=== PATIENT | female | born 1940 | race Caucasian/White ===

== ENCOUNTER → 2017-03-18 | Outpatient (CLI) | payer MEDICARE, BC ==
--- NOTE | 2017-03-24 14:16 | MM ---
Reason for exam: screening (asymptomatic). Last mammogram was performed 1 year and 5 months ago. History: Patient is postmenopausal and has history of other cancer at age 77. Took estrogen for 7 years 7 months. Took progesterone for 7 years 7 months. Physical Findings: A clinical breast exam by your physician is recommended on an annual basis and results should be correlated with mammographic findings. MG 3D Screening Mammo W/Cad Bilateral CC and MLO view(s) were taken. Prior study comparison: October 08, 2015, bilateral MG 3d screening mammo w/cad. June 27, 2014, bilateral MG screening mammo w CAD. There are scattered fibroglandular densities. No significant changes when compared with prior studies. ASSESSMENT: Benign, BI-RAD 2 RECOMMENDATION: Routine screening mammogram of both breasts in 1 year.
== END | disposition home or self-care (01) ==
LOC: RADMAMWWP 13:00
PROVIDERS: ATTEND Internal Medicine
DX: Z12.31 Encounter for screening mammogram for malignant neoplasm of breast (principal)
CPT/HCPCS: 77063; G0202

== ENCOUNTER → 2017-07-19 | Outpatient (CLI) | payer MEDICARE, BC ==
[2017-07-19 13:48] VITALS: BP 139/81; PULSE 90; TEMP 96.7; BMI 28.3
--- NOTE | 2017-07-19 14:50 | P.HPOB ---
History of Present Illness H&P Date: 07/19/17 Chief Complaint: The patient is here for her routine gynecologic exam. This is a 77-year-old G3 PIII with an LMP of 1997. Patient is here to establish with this office. She previously saw Dr. Toledo for her gynecologic exams. It is been about 5 years since her last pelvic exam. She is without gynecologic complaints and denies any postmenopausal bleeding. Her last mammogram on 03/18/2017 was benign. Her last bone density test was on 2014. Review of Systems Her weight has been stable. She denies respiratory, cardiac, or G.I. problems. She denies maltreatment are falling. : she denies any significant problems with urinary leakage. Past Medical History Past Medical History: GERD/Reflux, Hyperlipidemia Additional Past Medical History / Comment(s): Vertical and osteoporosis. She did use Actonel for 5 years until approximately 2012. 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 She had 3 vaginal deliveries. History of Any Multi-Drug Resistant Organisms: None Reported Past Surgical History: Appendectomy Additional Past Surgical History / Comment(s): Colonoscopy 2013. Laparoscopy and D&Cs in the past. Past Psychological History: No Psychological Hx Reported Smoking Status: Never smoker Past Alcohol Use History: Occasional (About one glass of wine every other day.) Past Drug Use History: None Reported Additional History: She has been since 1964 and is sexually active. - Past Family History Father Family Medical History: Cancer (Prostate) Mother Family Medical History: Hyperlipidemia Medications and Allergies Home Medications Medication Instructions Recorded Confirmed Type Aspirin [Children's Aspirin] mg PO DAILY 07/19/17 History Fluocinolone Acetonide Oil ml BOTH EARS PRN 07/19/17 History [Fluocinolone Acetonide Oil (Otic)] Omeprazole/Sodium Bicarbonate mg PO 07/19/17 History [Omeprazole-Bicarb 20-1,100 Cap] Simvastatin mg PO HS 07/19/17 History Allergies Allergy/AdvReac Type Severity Reaction Status Date / Time No Known Allergies Allergy Unverified 07/19/17 13:50 Exam - Vital Signs Vital signs: Vital Signs Temp Pulse BP 07/19/17 13:21 96.7 F L 90 139/81 Intake and Output 07/18/17 07/19/17 07/19/17 22:59 06:59 14:59 Other: Weight 70.307 kg Height 5'2", BMI 28.3. This is a well-developed well-nourished white female who is alert and oriented times 3 in no acute distress. HEENT: Within normal limits. NECK: Supple without mass or thyromegaly. CHEST AND LUNGS: Clear to auscultation. HEART: Regular rate and rhythm. BREASTS: Are without mass or discharge. AXILLARY EXAM: Negative for adenopathy. BACK: Negative for CVA tenderness. ABDOMEN: Soft, nontender, without palpable masses. PELVIC EXAM: Normal external genitalia with mild to moderate atrophy. Cervix and vagina appear normal with mild to moderate atrophy. There is no unusual discharge. There is no evidence of prolapse. The uterus is midposition, nongravid size and nontender. There are no palpable adnexal masses or tenderness. RECTAL EXAM: rectovaginal exam is negative for mass or tenderness and is negative for occult blood. EXTREMITIES: Nontender. IMPRESSION: 1. 77-year-old menopausal female with normal gynecologic exam. 2. History of osteoporosis status post 5 years use of bisphosphonates in the past. PLAN: 1. Pap smear was performed. 2. Self breast awareness was discussed. 3. Mammogram was benign on 03/18/2017. She will repeat this in one year. 4. Osteoporosis management was discussed. We will plan a repeating bone density testing next year. 5. She states she will look into having her colonoscopy done again next year since she states it will be due then. 6. She will return in one year. 7. She did have a flu shot last fall and does this yearly.
== END | disposition home or self-care (01) ==
LOC: WWCWWP 13:04
PROVIDERS: ATTEND Obstetrics & Gynecology
DX: Z53.9 Procedure and treatment not carried out, unspecified reason (principal)

== ENCOUNTER → 2018-08-30 | Outpatient (CLI) | payer MEDICARE, BC ==
[2018-08-30 10:34] VITALS: BP 138/83; PULSE 88; RESP 16; TEMP 98.2; BMI 28.3
--- NOTE | 2018-08-30 11:30 | P.HPOB ---
History of Present Illness H&P Date: 08/30/18 Chief Complaint: The patient is here for her routine gynecologic exam. This is a 78 year old with an LMP of 1997. The patient is without gynecologic complaints. She is infrequently sexually active. Review of Systems Weight has been stable. She denies respiratory, cardiac and G.I. problems. She denies maltreatment or problems with falling. : she denies any significant problems with urinary leakage. Past Medical History Past Medical History: GERD/Reflux, Hyperlipidemia Additional Past Medical History / Comment(s): Vertical and osteoporosis. She did use Actonel for 5 years until approximately 2012. 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 She had 3 vaginal deliveries. History of Any Multi-Drug Resistant Organisms: None Reported Past Surgical History: Appendectomy Additional Past Surgical History / Comment(s): Colonoscopy 2013. Laparoscopy and D&Cs in the past. Past Psychological History: No Psychological Hx Reported Smoking Status: Never smoker Past Alcohol Use History: Occasional (1 every other day) Past Drug Use History: None Reported Additional History: She has been since 1964 and is sexually active. - Past Family History Father Family Medical History: Cancer Additional Family Medical History / Comment(s): Prostate cancer. Mother Family Medical History: Hyperlipidemia Medications and Allergies Home Medications Medication Instructions Recorded Confirmed Type Aspirin [Children's Aspirin] mg PO DAILY 07/19/17 History Fluocinolone Acetonide Oil ml BOTH EARS PRN 07/19/17 History [Fluocinolone Acetonide Oil (Otic)] Simvastatin mg PO HS 07/19/17 History Allergies Allergy/AdvReac Type Severity Reaction Status Date / Time No Known Allergies Allergy Unverified 08/30/18 10:34 Exam Vital Signs Temp Pulse Resp BP Pulse Ox 08/30/18 10:29 98.2 F 88 16 138/83 96 Intake and Output 08/29/18 08/30/18 08/30/18 22:59 06:59 14:59 Other: Weight 70.307 kg Height 5'2", weight 155 pounds, BMI 28.3. This is a well-developed well-nourished white female who is alert and oriented times 3 in no acute distress. HEENT: Within normal limits. NECK: Supple without mass or thyromegaly. CHEST AND LUNGS: Clear to auscultation. HEART: Regular rate and rhythm. BREASTS: Are without mass or discharge. AXILLARY EXAM: Negative for adenopathy. BACK: Negative for CVA tenderness. ABDOMEN: Soft, nontender, without palpable masses. PELVIC EXAM: Normal external genitalia with mild to moderate atrophy. Cervix and vagina appear normal with mild to moderate atrophy. There is no unusual discharge. There is no evidence of prolapse. The uterus is midposition, nongravid size and nontender. There are no palpable adnexal masses or tenderness. RECTAL EXAM: rectovaginal exam is negative for mass or tenderness and is negative for occult blood. EXTREMITIES: Nontender. IMPRESSION: 1. 78 year old menopausal female with normal gynecologic exam. 2. History of osteoporosis status post 5 years use of Fosamax in the past. PLAN: 1. Pap smear was deferred since she had a normal one on 07/19/2017. I will check Dr. mendiola records to see if she has had adequate cervical cancer screening in the past. If so, we will discontinue Pap smears. 2. Self breast awareness was discussed with the patient. 3. Screening mammogram is recommended and the order slip was given to the patient for this. 4. Osteoporosis management was discussed. Her last bone density test was done on 12/20/2014. I have recommended repeat bone density testing and the order slip was given to the patient for this. 5. She does get flu shots in the fall. 6.She was advised to return in one year for her annual well woman exam.
== END | disposition home or self-care (01) ==
LOC: WWCWWP 10:21
PROVIDERS: ATTEND Obstetrics & Gynecology
DX: Z53.9 Procedure and treatment not carried out, unspecified reason (principal)

== ENCOUNTER → 2021-02-27 | Outpatient (CLI) | payer MEDICARE, BC ==
--- NOTE | 2021-02-27 13:17 | CT ---
EXAMINATION TYPE: CT iac wo con DATE OF EXAM: 02/27/2021 COMPARISON: HISTORY: Dizziness for months CT DLP: 216 mGycm Automated exposure control for dose reduction was used. Contrast: None Technique: Axial images 1 mm thick sections through the internal auditory canals. Reconstructed coron al plane images are reviewed. FINDINGS: Internal auditory canal canals appear normal and symmetrical. No erosion or expansion is evident. Cer ebellar pontine angles appear normal. Mastoid air cells are clear. Semicircular canals are normal. Cochlea are normal. Pancreas and malleus have normal orientation. Attics are clear. Scutum are normal. Middle ear canal a nd external auditory canals appear normal. IMPRESSION: 1. NORMAL INTERNAL ARTERY CANAL STUDY
== END | disposition home or self-care (01) ==
LOC: RADCTMAIN 08:08
PROVIDERS: ATTEND Otolaryngology
DX: R42 Dizziness and giddiness (principal)
CPT/HCPCS: 70480

== ENCOUNTER 2021-06-30 03:37 | Observation (INO) | payer MEDICARE, BC ==
[2021-06-30] MEDS ORDERED: SODIUM CHLORIDE 0.9% 1,000 ML IV STA (03:38)
--- NOTE | 2021-06-30 03:39 | ED ---
Neuro HPI - General Stated Complaint: L sided weakness Time Seen by Provider: 06/30/21 03:37 Source: RN notes reviewed, old records reviewed Mode of arrival: EMS Limitations: no limitations - History of Present Illness Is the patient presenting with stroke symptoms?: Yes -: minutes(s) Initial Comments: This is a 81-year-old female to the ER today for evaluation. Patient presents today for evaluation regards to left-sided weakness left arm weakness left leg weakness. Symptoms began tonight and patient awoke from bed to go to the bathroom. She fell to the ground and then [facility] was called is patient requested to go to the hospital. On arrival to the ER patient is having some sensation deficits in the left side but no other neurological complaints. Patient has no history of stroke no blood thinners and history of high cholesterol Location: left arm, left leg History of same: No Place: home Severity: mild Quality: weak, numb, tingling Improves With: time Worsens With: none On Anticoagulants: No Associated Symptoms: denies other symptoms, fever/chills - Related Data Home Medications: Home Medications Medication Instructions Recorded Confirmed Aspirin [Children's Aspirin] 81 - 648 mg PO Q4H PRN 07/19/17 06/30/21 Simvastatin 80 mg PO HS 07/19/17 06/30/21 fluocinolone acetonide oiL 5 drop BOTH EARS BID PRN 07/19/17 06/30/21 [fluocinolone acetonide oiL 0.01% (Otic)] Omeprazole [PriLOSEC] 20 mg PO Q48H 06/30/21 06/30/21 Allergies/Adverse Reactions: Allergies Allergy/AdvReac Type Severity Reaction Status Date / Time No Known Allergies Allergy Verified 06/30/21 06:39 Review of Systems ROS Statement: Those systems with pertinent positive or pertinent negative responses have been documented in the HPI. ROS Other: All systems not noted in ROS Statement are negative. General Exam - General Exam Comments Initial Comments: NIH of 1 General appearance: alert, in no apparent distress Head exam: Present: atraumatic, normocephalic, normal inspection Eye exam: Present: normal appearance, PERRL, EOMI. Absent: scleral icterus, conjunctival injection, periorbital swelling ENT exam: Present: normal exam, mucous membranes moist Neck exam: Present: normal inspection. Absent: tenderness, meningismus, lymphadenopathy Respiratory exam: Present: normal lung sounds bilaterally. Absent: respiratory distress, wheezes, rales, rhonchi, stridor Cardiovascular Exam: Present: regular rate, normal rhythm, normal heart sounds. Absent: systolic murmur, diastolic murmur, rubs, gallop, clicks GI/Abdominal exam: Present: soft, normal bowel sounds. Absent: distended, tenderness, guarding, rebound, rigid Extremities exam: Present: normal inspection, full ROM, normal capillary refill. Absent: tenderness, pedal edema, joint swelling, calf tenderness Back exam: Present: normal inspection Neurological exam: Present: alert, oriented X3, CN II-XII intact Psychiatric exam: Present: normal affect, normal mood Skin exam: Present: warm, dry, intact, normal color. Absent: rash Stroke MDM - Lab Data Result diagrams: 06/30/21 03:58 06/30/21 03:58 Lab Results 06/30/21 06/30/21 06/30/21 Range/Units 03:58 03:58 03:58 WBC 8.3 (3.8-10.6) k/uL RBC 4.20 (3.80-5.40) m/uL Hgb 13.1 (11.4-16.0) gm/dL Hct 39.7 (34.0-46.0) % MCV 94.5 (80.0-100.0) fL MCH 31.2 (25.0-35.0) pg MCHC 33.0 (31.0-37.0) g/dL RDW 12.6 (11.5-15.5) % Plt Count 213 (150-450) k/uL MPV 7.8 Neutrophils % 46 % Lymphocytes % 43 % Monocytes % 5 % Eosinophils % 3 % Basophils % 1 % Neutrophils # 3.8 (1.3-7.7) k/uL Lymphocytes # 3.6 (1.0-4.8) k/uL Monocytes # 0.4 (0-1.0) k/uL Eosinophils # 0.3 (0-0.7) k/uL Basophils # 0.0 (0-0.2) k/uL PT 10.6 (9.0-12.0) sec INR 1.0 (<1.2) APTT 22.2 (22.0-30.0) sec Sodium 136 L (137-145) mmol/L Potassium 4.4 (3.5-5.1) mmol/L Chloride 105 (98-107) mmol/L Carbon Dioxide 24 (22-30) mmol/L Anion Gap 7 mmol/L BUN 22 H (7-17) mg/dL Creatinine 1.05 H (0.52-1.04) mg/dL Est GFR (CKD-EPI)AfAm 58 (>60 ml/min/1.73 sqM) Est GFR (CKD-EPI)NonAf 51 (>60 ml/min/1.73 sqM) Glucose 119 H (74-99) mg/dL Estimated Ave Glu mg/dL Hemoglobin A1c (0.0-6.0) % Calcium 8.7 (8.4-10.2) mg/dL Total Bilirubin 0.6 (0.2-1.3) mg/dL AST 19 (14-36) U/L ALT 13 (4-34) U/L Alkaline Phosphatase 41 (38-126) U/L Troponin I (0.000-0.034) ng/mL Total Protein 6.8 (6.3-8.2) g/dL Albumin 3.8 (3.5-5.0) g/dL Vitamin B12 (200.0-944.0) pg/mL 06/30/21 06/30/21 06/30/21 Range/Units 03:58 03:58 03:58 WBC (3.8-10.6) k/uL RBC (3.80-5.40) m/uL Hgb (11.4-16.0) gm/dL Hct (34.0-46.0) % MCV (80.0-100.0) fL MCH (25.0-35.0) pg MCHC (31.0-37.0) g/dL RDW (11.5-15.5) % Plt Count (150-450) k/uL MPV Neutrophils % % Lymphocytes % % Monocytes % % Eosinophils % % Basophils % % Neutrophils # (1.3-7.7) k/uL Lymphocytes # (1.0-4.8) k/uL Monocytes # (0-1.0) k/uL Eosinophils # (0-0.7) k/uL Basophils # (0-0.2) k/uL PT (9.0-12.0) sec INR (<1.2) APTT (22.0-30.0) sec Sodium (137-145) mmol/L Potassium (3.5-5.1) mmol/L Chloride (98-107) mmol/L Carbon Dioxide (22-30) mmol/L Anion Gap mmol/L BUN (7-17) mg/dL Creatinine (0.52-1.04) mg/dL Est GFR (CKD-EPI)AfAm (>60 ml/min/1.73 sqM) Est GFR (CKD-EPI)NonAf (>60 ml/min/1.73 sqM) Glucose (74-99) mg/dL Estimated Ave Glu mg/dL 122 Hemoglobin A1c 5.9 (0.0-6.0) % Calcium (8.4-10.2) mg/dL Total Bilirubin (0.2-1.3) mg/dL AST (14-36) U/L ALT (4-34) U/L Alkaline Phosphatase (38-126) U/L Troponin I <0.012 (0.000-0.034) ng/mL Total Protein (6.3-8.2) g/dL Albumin (3.5-5.0) g/dL Vitamin B12 205.0 (200.0-944.0) pg/mL - NIH Stroke Scale 1a. Level of Consciousness: (0) alert 1b. LOC Questions: (0) answers correctly 1c. LOC Commands: (0) performs tasks correctly 2. Best Gaze: (0) normal 3. Visual: (0) no visual loss 4. Facial Palsy: (0) normal symmetrical movement 5a. Motor Arm Left: (0) no drift 5b. Motor Arm Right: (0) no drift 6a. Motor Leg Left: (0) no drift 6b. Motor Leg Right: (0) no drift 7. Limb Ataxia: (0) absent 8. Sensory: (0) normal 9. Best Language: (0) no aphasia 10. Dysarthria: (0) normal 11. Extinction/Inattention: (1) visual/tactile inattention - Thrombolytic Inclusion/Exclusion Thrombolytic Exclusion Criteria: Onset of Symptoms Unknown (Symptoms are awake CVA) - Medical Decision Making 81 female to the emergency department for evaluation of CVA, patient symptoms are resolved, will be admitted for acute TIA for neuro logical monitoring and treatment - Radiology Data Radiology results: report reviewed (CT brain C-spine and chest x-ray negative for acute disease), image reviewed - EKG Data -: EKG Interpreted by Me (EKG shows sinus tachycardia 100 NV 164 QRS 90 QTC 412) Past Medical History Past Medical History: GERD/Reflux, Hyperlipidemia Additional Past Medical History / Comment(s): Vertical and osteoporosis. She did use Actonel for 5 years until approximately 2012. 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 She had 3 vaginal deliveries. History of Any Multi-Drug Resistant Organisms: None Reported Past Surgical History: Appendectomy Additional Past Surgical History / Comment(s): Colonoscopy 2013. Laparoscopy and D&Cs in the past. Past Psychological History: No Psychological Hx Reported Past Alcohol Use History: Occasional (1 every other day) Past Drug Use History: None Reported - Past Family History Father Family Medical History: Cancer Additional Family Medical History / Comment(s): Prostate cancer. Mother Family Medical History: Hyperlipidemia Course Vital Signs 06/30/21 06/30/21 06/30/21 03:46 03:56 05:45 Temperature 98.5 F Pulse Rate 100 96 103 H Pulse Rate [ Pulse Oximetery ] Respiratory 20 18 18 Rate Blood Pressure 189/97 172/88 147/99 Blood Pressure [Right Arm] O2 Sat by Pulse 99 97 96 Oximetry 06/30/21 06/30/21 06/30/21 06:58 12:51 16:00 Temperature 97.8 F 97.7 F Pulse Rate 84 Pulse Rate [ 101 H 76 Pulse Oximetery ] Respiratory 18 17 18 Rate Blood Pressure 133/74 Blood Pressure 154/76 127/74 [Right Arm] O2 Sat by Pulse 97 95 92 L Oximetry - Reevaluation(s) Reevaluation #1: 06/30/21 04:23 Medical record is reviewed Reevaluation #2: 06/30/21 04:23 No current change in symptoms Critical Care Time Critical Care Time: Yes Total Critical Care Time: 31 Disposition Clinical Impression: Cerebrovascular accident (CVA), Transient cerebral ischemia Disposition: ADMITTED IP TO THIS [facility] Condition: Good Is patient prescribed a controlled substance at d/c from ED?: No
[2021-06-30 04:08] LABS: Basophils % (A) 1 %; Eosinophils # (A) 0.3 k/uL (0-0.7); Eosinophils % (A) 3 %; HCT 39.7 % (34.0-46.0); HGB 13.1 gm/dL (11.4-16.0); Lymphocytes # (A) 3.6 k/uL (1.0-4.8); Lymphocytes % (A) 43 %; MCH 31.2 pg (25.0-35.0); MCV 94.5 fL (80.0-100.0); Mean Platelet Volume 7.8; Monocytes # (A) 0.4 k/uL (0-1.0); Monocytes % (A) 5 %; Neutrophils # (A) 3.8 k/uL (1.3-7.7); Neutrophils % (A) 46 %; Platelet Count 213 k/uL (150-450); RDW 12.6 % (11.5-15.5); WBC 8.3 k/uL (3.8-10.6)
--- NOTE | 2021-06-30 04:08 | CT ---
EXAMINATION TYPE: CT brain wo con for TPA DATE OF EXAM: 06/30/2021 COMPARISON: None HISTORY: AMS CT DLP: 7.8 mGycm Automated exposure control for dose reduction was used. Images of the brain obtained without contrast. There is mild cerebral atrophy. There is no mass effect or midline shift. There is no sign of intracr anial hemorrhage. Calvarium is intact. There is normal aeration of the mastoid sinuses. IMPRESSION: Mild cerebral atrophy. No acute intracranial abnormality. Exam limited slightly by streak artifact.
--- NOTE | 2021-06-30 04:12 | CT ---
EXAMINATION TYPE: CT angio head neck DATE OF EXAM: 06/30/2021 COMPARISON: None HISTORY: AMS CT DLP: 1472.2 mGycm Automated exposure control for dose reduction was used. CONTRAST: Performed with IV Contrast, patient injected with 65 mL of Isovue 370. Images obtained from the aortic arch to the vertex of the brain with IV contrast. There are 3-D post processed images. There is normal branching pattern of the great vessels on the aortic arch. There is arterial flow in both saline arteries. There is arterial flow in the vertebral arteries bilaterally. There is arterial flow in the common internal and external carotid arteries bilaterally. There is some plaque formatio n and apparent subtotal occlusion of the proximal left internal carotid artery. There is some plaque formation and 50% stenosis at the origin of the right external carotid artery. There is arterial flow in the vertebrobasilar artery system. There is arterial flow in the anterior m iddle and posterior cerebral arteries. There is no evidence of intracranial aneurysm or neovascularit y. There is no mass effect. There is normal enhancement of the venous sinuses. IMPRESSION: No intracranial angiographic abnormality. There is subtotal occlusion of the proximal left internal carotid artery due to extensive plaque form ation. There is 50% stenosis origin of the right external carotid artery. There is approximate 30% stenosis at the origin of the right internal carotid artery.
--- NOTE | 2021-06-30 04:13 | XR ---
EXAMINATION TYPE: XR chest 1V DATE OF EXAM: 06/30/2021 COMPARISON: NONE HISTORY: Weakness TECHNIQUE: Single view FINDINGS: Heart is normal. Lungs are clear of infiltrate. Thoracic aorta is atheromatous. Costophreni c angles are clear. Bony thorax is intact IMPRESSION: No active cardiopulmonary disease. Normal heart.
[2021-06-30 04:17] LABS: Albumin 3.8 g/dL (3.5-5.0); Calcium 8.7 mg/dL (8.4-10.2); Potassium 4.4 mmol/L (3.5-5.1); Total Bilirubin 0.6 mg/dL (0.2-1.3); Total Protein 6.8 g/dL (6.3-8.2)
[2021-06-30 04:40] LABS: Partial Thromboplastin Time 22.2 sec (22.0-30.0); Prothrombin Time 10.6 sec (9.0-12.0)
[2021-06-30] MEDS ORDERED: ASPIRIN 325 MG TAB PO STA (04:57)
[2021-06-30] MEDS ORDERED: LORazepam 2 MG/ML INJ IV PRN (05:11)
[2021-06-30] MEDS ORDERED: LORazepam 2 MG/ML INJ IV STA (05:11)
[2021-06-30] MEDS: SODIUM CHLORIDE 0.9% 1,000 ML IV SCH ×2 (05:41→13:58)
[2021-06-30 05:58] LABS: Appearance,Urine Clear (Clear); Bilirubin,Urine Negative (Negative); Blood,Urine Negative (Negative); Color,Urine Light Yellow; Glucose,Urine (UA) Negative (Negative); Ketones,Urine Negative (Negative); Leukocyte Esterase,Urine Negative (Negative); Nitrite,Urine Negative (Negative); PH, Urine 6.5 (5.0-8.0); Protein,Urine Negative (Negative); Specific Gravity,Urine 1.026 (1.001-1.035); Urobilinogen,Urine <2.0 mg/dL (<2.0)
--- NOTE | 2021-06-30 11:29 | US ---
EXAMINATION TYPE: US carotid duplex BILAT DATE OF EXAM: 06/30/2021 COMPARISON: NONE CLINICAL HISTORY: TIA. EXAM MEASUREMENTS: RIGHT: Peak Systolic Velocity (PSV) cm/sec ----- Right CCA: 76.5 ----- Right ICA: 119.7 ----- Right ECA: 106.3 ICA/CCA ratio: 1.6 RIGHT: End Diastole cm/sec ----- Right CCA: 21.5 ----- Right ICA: 25.9 ----- Right ECA: 8.1 LEFT: Peak Systolic Velocity (PSV) cm/sec ----- Left CCA: 59.6 ----- Left ICA: 149.1 ----- Left ECA: 101.6 ICA/CCA ratio: 2.5 LEFT: End Diastole cm/sec ----- Left CCA: 14.2 ----- Left ICA: 29.6 ----- Left ECA: 11.1 VERTEBRALS (direction of flow): Right Vertebral: Antegrade Left Vertebral: Antegrade Rhythm: Normal Severe atherosclerotic changes at bilateral bulbs. Some velocity elevations seen in left ICA. Grayscale, color Doppler, spectral Doppler imaging performed of the carotid arteries. Waveform analys is shows hemodynamic significant stenosis involving the proximal internal carotid artery in the left IMPRESSION: Borderline hemodynamic significant stenosis of the proximal internal carotid artery in t he left corresponding to what is likely 50-69% diameter reduction or Doppler criteria, an indirect me asurement of carotid stenosis Criteria for Assigning % of Stenosis / Diameter reduction (Estimation based on the indirect measurements of the internal carotid artery velocities (ICA PSV). 1. Normal (no stenosis)=ICA PSV < 125 cm/s: ratio < 2.0: ICA EDV<40 cm/s. 2. Less than 50% stenosis=ICA PSV < 125 cm/s: ratio < 2.0: ICA EDV<40 cm/s. 3. 50 to 69% stenosis=ICA PSV of 125 to 230 cm/s: ration 2.0 ? 4.0: ICA EDV 40-100 cm/s. 4. Greater than 70% stenosis to near occlusion= ICA PSV > 230 cm/s: ratio > 4.0: ICA EDV > 100 cm/s. 5. Near occlusion= ICA PSV velocities may be low or undetectable: variable ratio and ICA EDV. 6. Total occlusion=unable to detect flow.
--- NOTE | 2021-06-30 13:47 | P.CNNES ---
History of Present Illness Consult date: 06/30/21 Past Medical History Past Medical History: GERD/Reflux, Hyperlipidemia Additional Past Medical History / Comment(s): Vertical and osteoporosis. She did use Actonel for 5 years until approximately 2012. 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 She had 3 vaginal deliveries. History of Any Multi-Drug Resistant Organisms: None Reported Past Surgical History: Appendectomy Additional Past Surgical History / Comment(s): Colonoscopy 2013. Laparoscopy and D&Cs in the past. Past Psychological History: No Psychological Hx Reported Smoking Status: Never smoker Past Alcohol Use History: Occasional Past Drug Use History: None Reported - Past Family History Father Family Medical History: Cancer Additional Family Medical History / Comment(s): Prostate cancer. Mother Family Medical History: Hyperlipidemia Medications and Allergies Home Medications Medication Instructions Recorded Confirmed Type Aspirin [Children's Aspirin] 81 - 648 mg PO Q4H PRN 07/19/17 06/30/21 History Simvastatin 80 mg PO HS 07/19/17 06/30/21 History fluocinolone acetonide oiL 5 drop BOTH EARS BID PRN 07/19/17 06/30/21 History [fluocinolone acetonide oiL 0.01% (Otic)] Omeprazole [PriLOSEC] 20 mg PO Q48H 06/30/21 06/30/21 History Allergies Allergy/AdvReac Type Severity Reaction Status Date / Time No Known Allergies Allergy Verified 06/30/21 06:39 Physical Examination - Vital Signs Vital Signs: Vital Signs Temp Pulse Pulse Resp BP BP Pulse Ox 06/30/21 12:51 97.8 F 101 H 17 154/76 95 06/30/21 06:58 84 18 133/74 97 06/30/21 05:45 103 H 18 147/99 96 06/30/21 03:56 96 18 172/88 97 06/30/21 03:46 98.5 F 100 20 189/97 99 Intake and Output 06/29/21 06/30/21 06/30/21 22:59 06:59 14:59 Other: Weight 69.5 kg 69.5 kg Results - Laboratory Findings CBC and BMP: 06/30/21 03:58 06/30/21 03:58 Abnormal Lab Findings: Abnormal Labs 06/30/21 03:58 Sodium 136 L BUN 22 H Creatinine 1.05 H Glucose 119 H
[2021-06-30] MEDS: CLOPIDOGREL 75 MG TAB PO SCH (13:58)
--- NOTE | 2021-06-30 15:23 | P.GSCN ---
History of Present Illness Consult date: 06/30/21 Reason for Consult: ICA stenosis, TIA Requesting physician: Lida Duron History of present illness: This 81-year-old female who presented to the emergency department this morning after experiencing lower extremity weakness and left-sided weakness at 3 AM. Patient cannot at 3 AM to use the bathroom and states that her legs felt weak and gave out and she fell. She then stated that she had weakness on her left upper and lower extremity. She denied any other focal deficits. She denies any previous history of TIAs or strokes. She has past medical history including hyperlipidemia for which she she also is on a low-dose aspirin. She currently states the weakness has subsided. She denied any chest pain or shortness of breath. She denied any vision loss, difficulty speaking difficulty swallowing or right sided weakness. She had a CT angiogram of the head and neck as part of her workup which read no intracranial angiographic abnormality. 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 50% stenosis origin of the right external carotid artery with appr oximate 30% stenosis at the origin of the right internal carotid artery. She is denying any further weakness in the left upper or lower extremity. No other focal deficits currently. No chest pain or shortness of breath. Vascular surgery was consulted for internal carotid artery stenosis Review of Systems A 14 point review systems was completed all pertinent positives and negatives as stated in the HPI Past Medical History Past Medical History: GERD/Reflux, Hyperlipidemia Additional Past Medical History / Comment(s): Vertical and osteoporosis. She did use Actonel for 5 years until approximately 2012. 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 She had 3 vaginal deliveries. History of Any Multi-Drug Resistant Organisms: None Reported Past Surgical History: Appendectomy Additional Past Surgical History / Comment(s): Colonoscopy 2013. Laparoscopy and D&Cs in the past. Past Psychological History: No Psychological Hx Reported Smoking Status: Never smoker Past Alcohol Use History: Occasional Past Drug Use History: None Reported - Past Family History Father Family Medical History: Cancer Additional Family Medical History / Comment(s): Prostate cancer. Mother Family Medical History: Hyperlipidemia Medications and Allergies Home Medications Medication Instructions Recorded Confirmed Type Aspirin [Children's Aspirin] 81 - 648 mg PO Q4H PRN 07/19/17 06/30/21 History Simvastatin 80 mg PO HS 07/19/17 06/30/21 History fluocinolone acetonide oiL 5 drop BOTH EARS BID PRN 07/19/17 06/30/21 History [fluocinolone acetonide oiL 0.01% (Otic)] Omeprazole [PriLOSEC] 20 mg PO Q48H 06/30/21 06/30/21 History Allergies Allergy/AdvReac Type Severity Reaction Status Date / Time No Known Allergies Allergy Verified 06/30/21 06:39 Surgical - Exam Vital Signs Temp Pulse Resp BP Pulse Ox 98.5 F 100 20 189/97 99 06/30/21 03:46 06/30/21 03:46 06/30/21 03:46 06/30/21 03:46 06/30/21 03:46 General appearance: The patient is alert, oriented, appears in no acute distress. HET: Head is normocephalic and atraumatic. Pupils are equal and reactive. Neck: Supple without lymphadenopathy. Trachea midline. No audible carotid bruit. Heart: S1 S2. Regular rate and rhythm. Lungs: Clear to auscultation bilaterally. Abdomen: Soft, nontender, nondistended. Extremities: Normal skin color and turgor. No cyanosis, rash, ulceration, clubbing, or edema. Radial and pedal pulses are 2/4 bilaterally. Neurological: No focal deficits. Tongue protrudes midline, patient has facial symmetry, speech is fluent, she answers questions appropriately. Strength and sensation are equal and grossly intact. Results - Labs 06/30/21 03:58 06/30/21 03:58 Abnormal Lab Results - Last 24 Hours (Table) 06/30/21 Range/Units 03:58 Sodium 136 L (137-145) mmol/L BUN 22 H (7-17) mg/dL Creatinine 1.05 H (0.52-1.04) mg/dL Glucose 119 H (74-99) mg/dL Diabetes panel 06/30/21 Range/Units 03:58 Sodium 136 L (137-145) mmol/L Potassium 4.4 (3.5-5.1) mmol/L Chloride 105 (98-107) mmol/L Carbon Dioxide 24 (22-30) mmol/L BUN 22 H (7-17) mg/dL Creatinine 1.05 H (0.52-1.04) mg/dL Glucose 119 H (74-99) mg/dL Calcium 8.7 (8.4-10.2) mg/dL AST 19 (14-36) U/L ALT 13 (4-34) U/L Alkaline Phosphatase 41 (38-126) U/L Total Protein 6.8 (6.3-8.2) g/dL Albumin 3.8 (3.5-5.0) g/dL Calcium panel 06/30/21 Range/Units 03:58 Calcium 8.7 (8.4-10.2) mg/dL Albumin 3.8 (3.5-5.0) g/dL Pituitary panel 06/30/21 Range/Units 03:58 Sodium 136 L (137-145) mmol/L Potassium 4.4 (3.5-5.1) mmol/L Chloride 105 (98-107) mmol/L Carbon Dioxide 24 (22-30) mmol/L BUN 22 H (7-17) mg/dL Creatinine 1.05 H (0.52-1.04) mg/dL Glucose 119 H (74-99) mg/dL Calcium 8.7 (8.4-10.2) mg/dL Adrenal panel 06/30/21 Range/Units 03:58 Sodium 136 L (137-145) mmol/L Potassium 4.4 (3.5-5.1) mmol/L Chloride 105 (98-107) mmol/L Carbon Dioxide 24 (22-30) mmol/L BUN 22 H (7-17) mg/dL Creatinine 1.05 H (0.52-1.04) mg/dL Glucose 119 H (74-99) mg/dL Calcium 8.7 (8.4-10.2) mg/dL Total Bilirubin 0.6 (0.2-1.3) mg/dL AST 19 (14-36) U/L ALT 13 (4-34) U/L Alkaline Phosphatase 41 (38-126) U/L Total Protein 6.8 (6.3-8.2) g/dL Albumin 3.8 (3.5-5.0) g/dL - Imaging Comments: CT angiogram of the head and neck as part of her workup which read no intracranial angiographic abnormality. 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 50% stenosis origin of the right external carotid artery with approximate 30% stenosis at the origin of the right internal carotid artery. Carotid ultrasound: Right ICA PSV 119.7, ICA/CCA ratio 1.6. Left ICA PSV 149, ICA/CCA ratio 2.5. Impression states borderline hemodynamic significant stenosis of the proximal internal carotid artery and the left corresponding with is likely 50-69% diameter reduction on Doppler criteria. Assessment and Plan Assessment: 1. No significant right internal carotid artery stenosis, borderline hemodynamic stenosis of the left proximal internal carotid artery 2. Right-sided weakness, possible TIA 3. Hyperlipidemia Plan: 1. Continue symptomatic supportive care 2. Recommend aspirin and statin and defer to neurology for antiplatelet therapy 3. CT angiogram head and neck reviewed by vascular surgery, there is no subtotal occlusion of the left ICA. Discordant findings between CTA and carotid ultrasound. Carotid ultrasound with more accurate report' 4. Recommend outpatient surveillance. No recommendations at this time for any vascular surgical intervention. 5. Continue with recommendations from neurology Thank you for this consultation, we will continue to follow. The impression and plan of care has been dictated as directed. Dr. Carrillo I performed a history and examination of this patient, discussed the same with the dictator. I agree with the dictator's note ,documented as a scribe. Any additional findings or plans will be noted.
--- NOTE | 2021-06-30 19:05 | ECHOF ---
Referral Reason:Thrombus MEASUREMENTS -------- HEIGHT: 157.5 cm WEIGHT: 69.4 kg BP: 133/74 RVIDd: 3.2 cm (< 3.3) IVSd: 1.3 cm (0.6 - 1.1) LVIDd: 2.1 cm (3.9 - 5.3) LVPWd: 1.4 cm (0.6 - 1.1) IVSs: 1.6 cm LVIDs: 1.5 cm LVPWs: 1.4 cm LAESV Index (A-L): 20.19 ml/m Ao Diam: 3.4 cm (2.0 - 3.7) AV Cusp: 1.6 cm (1.5 - 2.6) LA Diam: 3.3 cm (2.7 - 3.8) MV EXCURSION: 10.378 mm (> 18.000) MV EF SLOPE: 49 mm/s (70 - 150) EPSS: 0.3 cm MV E Tomy: 0.77 m/s MV DecT: 246 ms MV A Tomy: 1.19 m/s MV E/A Ratio: 0.64 RAP: 5.00 mmHg RVSP: 30.66 mmHg FINDINGS -------- Sinus rhythm. This was a technically adequate study. The left ventricular size is normal. There is mild concentric left ventricular hypertrophy. Overa ll left ventricular systolic function is normal with, an EF between 55 - 60 %. The diastolic fillin g pattern is normal for the age of the patient 13.66. The right ventricle is normal in size. Normal LA size by volume 22+/-6 ml/m2. The right atrial size is normal. Interatrial and interventricular septum intact. There is mild aortic valve sclerosis. There is no evidence of aortic regurgitation. There is no e vidence of aortic stenosis. Moderate mitral annular calcification present. Mild mitral regurgitation is present. The tricuspid valve appears structurally normal. Mild tricuspid regurgitation present. Right vent ricular systolic pressure is normal at < 35 mmHg. The right ventricular systolic pressure, as measu red by Doppler, is 30.66mmHg. There is no pulmonic regurgitation present. The aortic root size is normal. IVC Not well visulized. There is no pericardial effusion. CONCLUSIONS -------- 1. There is mild concentric left ventricular hypertrophy. 2. Overall left ventricular systolic function is normal with, an EF between 55 - 60 %. 3. Normal LA size by volume 22+/-6 ml/m2. 4. There is mild aortic valve sclerosis. 5. Moderate mitral annular calcification present. 6. Mild mitral regurgitation is present. 7. Mild tricuspid regurgitation present. GENETIC TECHNOLOGIST: Rosa Alexander RDCS
[2021-06-30] MEDS ORDERED: ATORVASTATIN 80 MG TAB PO SCH (21:00)
[2021-07-01] MEDS: SODIUM CHLORIDE 0.9% 1,000 ML IV SCH ×2 (00:43→11:06)
--- NOTE | 2021-07-01 08:15 | P.CNNES ---
History of Present Illness Consult date: 06/30/21 Requesting physician: Marshall Gao Reason for Consult: TIA History of Present Illness: Patient is a 81-year-old female came to the hospital for possible TIA. Patient states that she woke up at 3 AM to go to the bathroom. When she tried to get up, she had no feeling in the legs (both), and she dropped down on the side of the bed. She also noticed that she had no feeling in her left hand and left arm was completely "". Her left arm was also tingling. She has to use her right arm to lift the left arm. She denied any slurred speech, and her did not notice any drooping face. No vertigo or visual problems. Patient called the ambulance, and arrived to the hospital at 3:37 AM. EMS flow sheet not available in the chart. Her vital signs on arrival blood pressure 189/97, pulse rate 100 temperature 98.5. Blood test shows normal CBC, PT/PTT, sodium 136 potassium 4.4, BUN 22, creatinine 1.05. Hepatic panel is normal. Troponin is negative. UA negative. Computed tomography scan of head showed mild cerebral atrophy. No acute intracranial prominent. Examination limited slightly by streak artifact. I reviewed computed tomography scan of the head, and agree there is no acute findings. CTA of head and neck revealed no intracranial angiographic abnormality. It also reported subtotal occlusion of the proximal left ICA due to extensive plaque formation. There is 50% stenosis origin of the right external carotid artery. There is approximately 30% stenosis at the origin of the right ICA. Chest x-ray showed no active cardiopulmonary disease. Normal heart. EKG shows sinus tachycardia. Patient says that her symptoms lasted for about 3 hours and now the symptoms have completely resolved. Patient also states that about couple months ago she had a similar spell, in which she was sitting down watching TV, when she tried to get up, her both legs felt weak, and also had no feeling of the left arm. The symptoms were exactly similar to what she has experienced now, but it only lasted for a couple minutes. She did not seek medical attention for that. Patient denies any history of diabetes, hypertension. She does have hyperlipidemia and takes simvastatin 80 mg a day and also has acid reflux. She takes omeprazole. Patient does not take any antiplatelet medication on a regular basis, sometimes takes aspirin 81 mg about twice a week. She also takes some medication as needed for vertigo. Patient has never smoked. Drinks alcohol very occasionally. Review of Systems As above in detail. She has history of spinal curve curvature. She follows up with chiropractor. She has left shoulder issue, probable rotator cuff. Denies any ear infection. She does have intermittent vertigo. All other 14 point of review systems reviewed unremarkable. No chest pain, shortness of breath. Past Medical History Past Medical History: GERD/Reflux, Hyperlipidemia Additional Past Medical History / Comment(s): Vertical and osteoporosis. She did use Actonel for 5 years until approximately 2012. 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 She had 3 vaginal deliveries. History of Any Multi-Drug Resistant Organisms: None Reported Past Surgical History: Appendectomy Additional Past Surgical History / Comment(s): Colonoscopy 2013. Laparoscopy and D&Cs in the past. Past Psychological History: No Psychological Hx Reported Past Alcohol Use History: Occasional (1 every other day) Past Drug Use History: None Reported - Past Family History Father Family Medical History: Cancer Additional Family Medical History / Comment(s): Prostate cancer. Mother Family Medical History: Hyperlipidemia Medications and Allergies Home Medications Medication Instructions Recorded Confirmed Type Aspirin [Children's Aspirin] 81 - 648 mg PO Q4H PRN 07/19/17 06/30/21 History Simvastatin 80 mg PO HS 07/19/17 06/30/21 History fluocinolone acetonide oiL 5 drop BOTH EARS BID PRN 07/19/17 06/30/21 History [fluocinolone acetonide oiL 0.01% (Otic)] Omeprazole [PriLOSEC] 20 mg PO Q48H 06/30/21 06/30/21 History Allergies Allergy/AdvReac Type Severity Reaction Status Date / Time No Known Allergies Allergy Verified 06/30/21 06:39 Physical Examination - Vital Signs Vital Signs: Vital Signs Temp Pulse Resp BP Pulse Ox 07/01/21 06:51 98.2 F 78 17 160/89 96 07/01/21 00:35 97.8 F 76 16 134/70 96 06/30/21 19:56 98.0 F 85 16 181/83 97 06/30/21 17:14 98 F 74 18 144/81 100 06/30/21 16:00 97.7 F 76 18 127/74 92 L 06/30/21 12:51 97.8 F 101 H 17 154/76 95 Intake and Output 06/30/21 07/01/21 07/01/21 22:59 06:59 14:59 Intake Total 118 Balance 118 Intake: Oral 118 Other: # Voids 1 1 Patient is an elderly female, very pleasant, in no acute distress. Patient is alert awake oriented to time place and person. Speech and language functions are normal. No aphasia or dysarthria. Attention, concentration and fund of knowledge is adequate. On cranial examination, pupils are equal, round and reacting to light, visual brody are full on confrontation, with no neglect on double simultaneous stimulation. Her extraocular muscles are intact with no nystagmus. Face is symmetric, tongue protrudes to the midline. Palatal elevation and sensation normal, hearing is slightly decreased for finger rubbing and shoulder shrug normal, facial sensation normal. Shoulder shrug normal. On muscle strength testing, there is no pronator drift and the strength is normal in arms and legs distally and proximally. Deep tendon reflexes are 1 in the upper limbs, 2 in the lower limbs and plantars downgoing bilaterally. Sensory to touch is equal with no neglect. Cerebellar function showed no ataxia for [id number] testing. No dysdiadochokinesia. Tone and bulk of muscles normal. Gait deferred. On general examination, there is no carotid bruit or murmur, S1-S2 audible. Abdomen is soft nontender. No organomegaly, bowel sounds present. Chest is clear. Peripheral pulses are present. No edema. Results - Laboratory Findings CBC and BMP: 06/30/21 03:58 06/30/21 03:58 Abnormal Lab Findings: Abnormal Labs 06/30/21 03:58 Sodium 136 L BUN 22 H Creatinine 1.05 H Glucose 119 H Assessment and Plan Assessment: * Probable TIA manifesting with bilateral leg and left arm weakness. Symptoms resolved in 3 hours. Patient had a similar TIA about couple months ago, but it only lasted for a few minutes at that time. * Hypertension * Hyperlipidemia Plan: * Patient had present with TIA. She had a similar spell couple months ago as well, which was much shorter in duration. Patient's ABCD2 score is 6, which is high risk of strokes. Patient will be started on dual antiplatelet medication with aspirin 81 mg and Plavix 75 mg. She will stay on dual antiplatelet medication for 21 days and then stop Plavix and continue aspirin indefinitely. * Patient CTA of head and neck showed possible significant stenosis on the left side, which is clinically asymptomatic, as the symptoms were mainly on the ipsilateral left side. Vascular surgery has seen the patient, who do not believe there is significant right ICA stenosis, borderline hemodynamic stenosis of the left proximal ICA. Vascular surgery recommending outpatient surveillance. No surgical intervention indicated at this time. * 2-D echo revealed mild concentric LVH. EF is between 55-60%. Normal left atrial size. Mild aortic valve sclerosis. Moderate mitral annular calcification. * Carotid Doppler revealed borderline hemodynamic significant stenosis of the proximal ICA in the left corresponding to what is likely 50-69% DiaBeta reduction on Doppler criteria. Antegrade flow in both vertebral arteries. * Hemoglobin A1c 5.9 * Lipid panel, check B12. * Telemetry monitoring. Neurology will follow. Thank you for the consult.
[2021-07-01] MEDS ORDERED: ENOXAPARIN 40 MG/0.4 ML SYRINGE SQ SCH (09:00)
[2021-07-01] MEDS ORDERED: ASPIRIN 81 MG PO SCH (09:00)
[2021-07-01] MEDS ORDERED: ASPIRIN 325 MG TAB PO SCH (09:00)
[2021-07-01] MEDS: CLOPIDOGREL 75 MG TAB PO SCH (09:35)
--- NOTE | 2021-07-01 09:35 | P.HPIM ---
History of Present Illness H&P Date: 06/30/21 Isabella Au, is a 81 year-old female who presented to [facility] with a chief complaint of left sided weakness involving the left upper and left lower extremities, symptoms were noticed by patient when she got out of her bed to go to the bathroom she fell to the floor and was unable to stand up EMS were called and patient was brought to emergency room. She was evaluated in the emergency room vital evaluation on presentation revealed a temperature of 98.5 pulse 100 respiration 20 blood pressure 189/97 pulse ox 99% on room air Her emergency room physician exam patient was having some sensation deficit in the left side but no other neurological complaints Resting in the emergency room revealed computed tomography scan of the brain done in the emergency room revealed mild cerebral atrophy no acute intracranial abnormality, CT angiogram of the neck and head was done in the emergency room and revealed subtotal occlusion of the left proximal internal carotid artery, chest x-ray revealed no active cardiopulmonary disease, and EKG revealed sinus tachycardia otherwise no acute abnormality. Patient was admitted to telemetry floor neurology consultation was requested, echocardiogram was requested, vascular surgery consultation was requested in regard to findings on CT angiogram of the neck. Past Medical History Past Medical History: GERD/Reflux, Hyperlipidemia Additional Past Medical History / Comment(s): Vertical and osteoporosis. She did use Actonel for 5 years until approximately 2012. 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 She had 3 vaginal deliveries. History of Any Multi-Drug Resistant Organisms: None Reported Past Surgical History: Appendectomy Additional Past Surgical History / Comment(s): Colonoscopy 2013. Laparoscopy and D&Cs in the past. Past Psychological History: No Psychological Hx Reported Smoking Status: Never smoker Past Alcohol Use History: Occasional Past Drug Use History: None Reported - Past Family History Father Family Medical History: Cancer Additional Family Medical History / Comment(s): Prostate cancer. Mother Family Medical History: Hyperlipidemia Medications and Allergies Home Medications Medication Instructions Recorded Confirmed Type Aspirin [Children's Aspirin] 81 - 648 mg PO Q4H PRN 07/19/17 06/30/21 History Simvastatin 80 mg PO HS 07/19/17 06/30/21 History fluocinolone acetonide oiL 5 drop BOTH EARS BID PRN 07/19/17 06/30/21 History [fluocinolone acetonide oiL 0.01% (Otic)] Omeprazole [PriLOSEC] 20 mg PO Q48H 06/30/21 06/30/21 History Allergies Allergy/AdvReac Type Severity Reaction Status Date / Time No Known Allergies Allergy Verified 06/30/21 06:39 Physical Exam Vitals: Vital Signs Temp Pulse Resp BP Pulse Ox 06/30/21 06:58 84 18 133/74 97 06/30/21 05:45 103 H 18 147/99 96 06/30/21 03:56 96 18 172/88 97 06/30/21 03:46 98.5 F 100 20 189/97 99 Intake and Output 06/29/21 06/30/21 06/30/21 22:59 06:59 14:59 Other: Weight 69.5 kg 69.5 kg In general patient is alert and oriented x 3 in no distress HEENT head normocephalic and atraumatic Neck is supple no JVD no goiter no lymphadenopathy no carotid bruit Chest examination is clear to auscultation no crackles no wheezing Cardiac exam reveals regular heart sounds S1 and S2 no gallops no murmurs Abdomen is soft nontender no organomegaly with normal bowel sounds Extremity exam reveals no edema no cyanosis or clubbing Neurological examination reveals no gross focal deficits Results CBC & Chem 7: 06/30/21 03:58 06/30/21 03:58 Labs: Abnormal Lab Results - Last 24 Hours (Table) 06/30/21 Range/Units 03:58 Sodium 136 L (137-145) mmol/L BUN 22 H (7-17) mg/dL Creatinine 1.05 H (0.52-1.04) mg/dL Glucose 119 H (74-99) mg/dL Thrombosis Risk Factor Assmnt - Choose All That Apply Any of the Below Risk Factors Present?: Yes Each Factor Represents 1 point: Obesity (BMI >25) Other Risk Factors: Yes Each Risk Factor Represents 3 Points: Age 75 years or older Other congenital or acquired thrombophilia - If yes, enter type in comment: No Thrombosis Risk Factor Assessment Total Risk Factor Score: 4 Thrombosis Risk Factor Assessment Level: Moderate Risk Assessment and Plan Assessment: Cerebrovascular accident with left sided weakness Underlying history of hyperlipidemia maintained on simvastatin Underlying history of gastroesophageal reflux disease maintained on omeprazole Elevated blood pressure on presentation Will monitor closely and assess need for blood pressure medication during this admission At this time patient is admitted to telemetry floor Echocardiogram ordered Neurology consultation and vascular surgery consultation requested Home medications reviewed and reordered For DVT prophylaxis we'll use subcu Lovenox Will recheck labs and follow-up in a.m.
[2021-07-01 10:30] LABS: Chol/HDL Ratio 3.29 Ratio; LDL Cholesterol,Calculated 87.1 mg/dL (0.0-131.0)
[2021-07-01] MEDS ORDERED: CYANOCOBALAMIN 1,000 MCG/ML 1 ML VIAL IM ONE (10:50)
[2021-07-01 11:28] VITALS: BP 144/80; PULSE 87; RESP 18; TEMP 98
--- NOTE | 2021-07-01 11:47 | P.DS ---
Providers Date of admission: 06/30/21 04:57 Expected date of discharge: 07/01/21 Attending physician: Lida Duron Consults: 06/30/21 04:58 Consult Physician Routine Consulting Provider: Marita Umaña Consult Reason/Comments: tia Do you want consulting provider notified?: Yes 06/30/21 09:49 Consult Physician Routine Consulting Provider: Julia Monique Consult Reason/Comments: carotid stenosis TIA Do you want consulting provider notified?: Yes [facility]: Discharge diagnosis Cerebrovascular accident with left sided weakness Underlying history of hyperlipidemia maintained on simvastatin Underlying history of gastroesophageal reflux disease maintained on omeprazole Elevated blood pressure on presentation Will monitor closely and assess need for blood pressure medication during this admission patient started on Norvasc ICA stenosis. Patient was evaluated by vascular surgery. Recommend outpatient surveillance at this time Hospital course Isabella Au, is a 81 year-old female who presented to [facility] with a chief complaint of left sided weakness involving the left upper and left lower extremities, symptoms were noticed by patient when she got out of her bed to go to the bathroom she fell to the floor and was unable to stand up EMS were called and patient was brought to emergency room. She was evaluated in the emergency room vital evaluation on presentation revealed a temperature of 98.5 pulse 100 respiration 20 blood pressure 189/97 pulse ox 99% on room air Her emergency room physician exam patient was having some sensation deficit in the left side but no other neurological complaints Resting in the emergency room revealed computed tomography scan of the brain done in the emergency room revealed mild cerebral atrophy no acute intracranial abnormality, CT angiogram of the neck and head was done in the emergency room and revealed subtotal occlusion of the left proximal internal carotid artery, chest x-ray revealed no active cardiopulmonary disease, and EKG revealed sinus tachycardia otherwise no acute abnormality. Patient was admitted to telemetry floor neurology consultation was requested, echocardiogram was requested, vascular surgery consultation was requested in regard to findings on CT angiogram of the neck. On 07/01/2021 patient is alert and oriented 3. Patient has been cleared for discharge from vascular surgery neurology services. Per neurology services recommend dual antiplatelet therapy with aspirin and Plavix for 21 days with continuation of aspirin after. Patient also started on Norvasc for elevated blood pressure. Patient was also evaluated by vascular surgery for ICA stenosis. Recommend outpatient surveillance at this time no surgical intervention recommended at this time. She is alert and oriented 3. Patient denies any new neurological symptoms. Patient denies chest pain or shortness breath. Patient denies nausea vomiting or diarrhea. Patient denies any urinary burning or frequency. Current vitals temp 98, heart rate 78, respiratory rate 18, blood pressure 144/80 patient satting 97% on room air. Patient follow-up with PCP for further management of chronic conditions Patient Condition at Discharge: Stable Plan - Discharge Summary Discharge Rx Participant: No New Discharge Prescriptions: New Aspirin 81 mg PO DAILY 30 Days #30 cap amLODIPine [Norvasc] 5 mg PO DAILY 30 Days #30 tab Clopidogrel [Plavix] 75 mg PO DAILY 21 Days #21 tab Continue Simvastatin 80 mg PO HS fluocinolone acetonide oiL [fluocinolone acetonide oiL 0.01% (Otic)] 5 drop BOTH EARS BID PRN PRN Reason: Itching Omeprazole [PriLOSEC] 20 mg PO Q48H Discontinued Aspirin [Children's Aspirin] 81 - 648 mg PO Q4H PRN PRN Reason: Pain Or Fever > 100.5 Discharge Medication List Simvastatin 80 mg PO HS 07/19/17 [History] fluocinolone acetonide oiL [fluocinolone acetonide oiL 0.01% (Otic)] 5 drop BOTH EARS BID PRN 07/19/17 [History] Omeprazole [PriLOSEC] 20 mg PO Q48H 06/30/21 [History] Aspirin 81 mg PO DAILY 30 Days #30 cap 07/01/21 [Rx] Clopidogrel [Plavix] 75 mg PO DAILY 21 Days #21 tab 07/01/21 [Rx] amLODIPine [Norvasc] 5 mg PO DAILY 30 Days #30 tab 07/01/21 [Rx] Follow up Appointment(s)/Referral(s): Narinder Mayer MD [Primary Care Provider] - 1-2 days Patient Instructions/Handouts: Transient Ischemic Attack (DC) Activity/Diet/Wound Care/Special Instructions: activity as tolerated heart healthy diet Discharge Disposition: HOME SELF-CARE
--- NOTE | 2021-07-01 12:19 | P.PN ---
Subjective Progress Note Date: 07/01/21 Patient is seen and examined at the follow-up from yesterday for left-sided weakness. CT angiogram and carotid duplex with discordant findings. Patient today states she has no focal deficits. She denies any weakness in her upper and lower extremities. No difficulty with speech, no vision changes, no d ifficulty with ambulating, or swallowing. She was started on Plavix by neurology. Objective - Vital Signs Vital signs: Vital Signs Temp 98 F 07/01/21 11:27 Pulse 87 07/01/21 11:27 Resp 18 07/01/21 11:27 BP 144/80 07/01/21 11:27 Pulse Ox 97 07/01/21 11:27 Intake & Output 06/30/21 07/01/21 07/01/21 18:59 06:59 18:59 Intake Total 118 Balance 118 Weight 69.5 kg Intake: Oral 118 Other: # Voids 2 1 - Exam General appearance: The patient is alert, oriented, appears in no acute distress. HET: Head is normocephalic and atraumatic. Pupils are equal and reactive. Neck: Supple without lymphadenopathy. Trachea midline. No audible carotid bruit. Heart: S1 S2. Regular rate and rhythm. Lungs: Clear to auscultation bilaterally. Abdomen: Soft, nontender, nondistended. Extremities: Normal skin color and turgor. No cyanosis, rash, ulceration, clubbing, or edema. Radial and pedal pulses are 2/4 bilaterally. Neurological: No focal deficits. Strength and sensation are grossly intact. - Labs CBC & Chem 7: 06/30/21 03:58 06/30/21 03:58 Assessment and Plan Assessment: 1. No significant right internal carotid artery stenosis, borderline hemodynami c stenosis of the left proximal internal carotid artery. Discordant findings between a CT angiogram and carotid duplex 2. Right-sided weakness, possible TIA 3. Hyperlipidemia Plan: 1. Continue symptomatic supportive care 2. Recommend aspirin and statin and defer to neurology for antiplatelet therapy 3. CT angiogram head and neck reviewed by vascular surgery, there is no subtotal occlusion of the left ICA. Discordant findings between CTA and carotid ultrasound. Carotid ultrasound with more accurate report' 4. Recommend outpatient surveillance. No recommendations at this time for any vascular surgical intervention. 5. Continue aspirin, Plavix, statin. Thank you for this consultation, the patient is cleared for discharge from vascular surgery. The impression and plan of care has been dictated as directed. Dr. Monique I performed a history and examination of this patient, discussed the same with the dictator. I agree with the dictator's note ,documented as a scribe. Any additional findings or plans will be noted.
[2021-07-02] MEDS ORDERED: amLODIPine 5 MG TAB PO SCH (09:00)
--- NOTE | 2021-07-06 13:29 | P.PN ---
Subjective Progress Note Date: 07/01/21 Patient was seen for a follow-up. Patient is a 81-year-old right-handed female came with possible TIA with bilateral leg and left arm weakness. Symptoms resolved in 3 hours. At present patient feels fine. No new focal symptoms. Objective - Vital Signs Vital signs: Vital Signs Temp 98.2 F 07/01/21 06:51 Pulse 78 07/01/21 06:51 Resp 17 07/01/21 06:51 BP 160/89 07/01/21 06:51 Pulse Ox 96 07/01/21 06:51 Intake & Output 06/30/21 07/01/21 07/01/21 18:59 06:59 18:59 Intake Total 118 Balance 118 Weight 69.5 kg Intake: Oral 118 Other: # Voids 2 1 - Exam Essentially unchanged. Patient's mentation is normal. - Labs CBC & Chem 7: 06/30/21 03:58 06/30/21 03:58 Assessment and Plan Assessment: * Probable TIA manifesting with bilateral leg and left arm weakness. Symptoms resolved in 3 hours. Patient had a similar TIA about couple months ago, but it only lasted for a few minutes at that time. * Hypertension * Hyperlipidemia Plan: * Patient had present with TIA. She had a similar spell couple months ago as well, which was much shorter in duration. Patient's ABCD2 score is 6, which is high risk of strokes. Patient will be started on dual antiplatelet medication with aspirin 81 mg and Plavix 75 mg. She will stay on dual an tiplatelet medication for 21 days and then stop Plavix and continue aspirin indefinitely. * Patient CTA of head and neck showed possible significant stenosis on the left side, which is clinically asymptomatic, as the symptoms were mainly on the ipsilateral left side. Vascular surgery has seen the patient, who do not believe there is significant right ICA stenosis, borderline hemodynamic stenosis of the left proximal ICA. Vascular surgery recommending outpatient surveillance. No surgical intervention indicated at this time. * 2-D echo revealed mild concentric LVH. EF is between 55-60%. Normal left atrial size. Mild aortic valve sclerosis. Moderate mitral annular calcification. * Carotid Doppler revealed borderline hemodynamic significant stenosis of the proximal ICA in the left corresponding to what is likely 50-69% DiaBeta reduction on Doppler criteria. Antegrade flow in both vertebral arteries. * Hemoglobin A1c 5.9 * Lipid panel with cholesterol 167, LDL 87, HDL 50 and triglycerides 146 * B12 205, which is low. Patient was given a B12 injection (cyanocobalamin) 1000 g IM. Patient to take vitamin B12 2500 g sublingually daily. * Neurologically clear for discharge.
== END 2021-07-01 13:45 | disposition home or self-care (01) ==
LOC: EC 03:37 → 6NMEDSUR 04:57
PROVIDERS: ADMIT Internal Medicine; ATTEND Internal Medicine
DX: I63.9 Cerebral infarction, unspecified (principal); G81.94 Hemiplegia, unspecified affecting left nondominant side; I65.23 Occlusion and stenosis of bilateral carotid arteries; R53.1 Weakness; R00.0 Tachycardia, unspecified; E78.5 Hyperlipidemia, unspecified; K21.9 Gastro-esophageal reflux disease without esophagitis; M81.0 Age-related osteoporosis without current pathological fracture; E66.9 Obesity, unspecified; Z68.28 Body mass index [BMI] 28.0-28.9, adult; I10 Essential (primary) hypertension; I08.3 Combined rheumatic disorders of mitral, aortic and tricuspid valves; W18.30XA Fall on same level, unspecified, initial encounter; Z79.899 Other long term (current) drug therapy; Z71.9 Counseling, unspecified; Z83.438 Family history of other disorder of lipoprotein metabolism and other lipidemia; Z80.42 Family history of malignant neoplasm of prostate
CPT/HCPCS: 96361 ×2; 96372; 96374; 99291; 36415; 93005; 93306; 97161; 97165; 80061; 80053; 82607; 84484; 85025; 85610; 85730; 81003; 83036; 71045; 93880; 70496; 70450; 70498; G0378 ×2; J2060; J3420; J1650; Q9967

== ENCOUNTER 2022-02-04 09:14 | Day surgery (SDC) | payer MEDICARE, BC ==
[2022-02-03 09:10] VITALS: BMI 26.1
[~2022-02-04 09:14] MED LIST: LACTATED RINGERS 1,000 ML IV SCH; LIDOCAINE 1% (10MG/ML) FOR IV START INTRADERMA PRN
--- NOTE | 2022-02-04 09:31 | P.GSHP ---
History of Present Illness H&P Date: 02/04/22 CHIEF COMPLAINT: GERD and colon screen HISTORY OF PRESENT ILLNESS: The patient is a 81-year-old female who presents with gastroesophageal reflux disease and need for colon screen. Upper and lower endoscopy were offered for further evaluation and management. PAST MEDICAL HISTORY: Please see list. PAST SURGICAL HISTORY: Please see list. MEDICATIONS: Please see list. ALLERGIES: Please see list. SOCIAL HISTORY: No illicit drug use FAMILY HISTORY: No reports of Crohn disease or ulcerative colitis. REVIEW OF ORGAN SYSTEMS: CONSTITUTIONAL: No reports of fevers or chills. GI: Denies any blood in stools or constipation. PHYSICAL EXAM: VITAL SIGNS: Stable GENERAL: Well-developed pleasant in no acute distress. HEENT: No scleral icterus. Extraocular movements grossly intact. Moist buccal mucosa. NECK: Supple without lymphadenopathy. CHEST: Unlabored respirations. Equal bilateral excursions. CARDIOVASCULAR: Regular rate and rhythm. Distal 2+ pulses. ABDOMEN: Soft, nondistended. MUSCULOSKELETAL: No clubbing, cyanosis, or edema. ASSESSMENT: 1. Gastroesophageal reflux disease 2. Colon screen. PLAN: 1. Recommend proceeding with an upper and lower endoscopy Past Medical History Past Medical History: Cancer, CVA/TIA, GERD/Reflux, Hyperlipidemia, Hypertension Additional Past Medical History / Comment(s): osteoporosis. TIA, SKIN CANCER, History of Any Multi-Drug Resistant Organisms: None Reported Past Surgical History: Appendectomy, Ear Surgery Additional Past Surgical History / Comment(s): Colonoscopy . Laparoscopy and D&Cs in the past. Past Anesthesia/Blood Transfusion Reactions: No Reported Reaction, Motion Sickness Smoking Status: Never smoker - Past Family History Father Family Medical History: Cancer Additional Family Medical History / Comment(s): Prostate cancer. Mother Family Medical History: Hyperlipidemia Medications and Allergies Home Medications Medication Instructions Recorded Confirmed Type Simvastatin 80 mg PO HS 07/19/17 02/03/22 History fluocinolone acetonide oiL 5 drop BOTH EARS BID PRN 07/19/17 02/03/22 History [fluocinolone acetonide oiL 0.01% (Otic)] Omeprazole [PriLOSEC] 20 mg PO Q48H 06/30/21 02/03/22 History Aspirin 81 mg PO DAILY 30 Days #30 cap 07/01/21 02/03/22 Rx Clopidogrel [Plavix] 75 mg PO DAILY 21 Days #21 tab 07/01/21 02/03/22 Rx Ciprofloxacin [Ciprofloxacin Oral 250 mg PO BID 02/03/22 02/03/22 History Susp] amLODIPine [Norvasc] 10 mg PO DAILY 02/03/22 02/03/22 History Allergies Allergy/AdvReac Type Severity Reaction Status Date / Time No Known Allergies Allergy Verified 02/03/22 08:36
[2022-02-04 09:54] VITALS: TEMP 97
[2022-02-04] MEDS ORDERED: GLYCOPYRROLATE 0.2 MG/ML 2 ML VIAL ONE (10:36)
[2022-02-04] MEDS ORDERED: PROPOFOL 10 MG/ML 20 ML VIAL IV ONE (10:36)
[2022-02-04] MEDS ORDERED: LIDOCAINE 2% INJ 20 MG/ML (2 ML VIAL) ONE (10:36)
--- NOTE | 2022-02-04 11:14 | P.PCN ---
Date of Procedure: 02/04/22 Description of Procedure: PREOPERATIVE DIAGNOSIS: Personal history of colon polyps POSTOPERATIVE DIAGNOSIS: Tubular adenoma sigmoid colon Tubular adenoma transverse colon Tubular adenoma descending Sigmoid diverticulosis Internal hemorrhoids, grade 3 OPERATION: Colonoscopy to the ileocecal valve and appendiceal orifice, cecum Colonoscopy with cold forceps biopsy SURGEON: Kayla Gao MD. ANESTHESIA: MAC. INDICATIONS: The patient is an 81-year-old female who presents personal history of colon polyps. Last colonoscopy 5 years. Benefits and risks were described and informed consent was obtained. DESCRIPTION OF PROCEDURE: The patient had undergone Sutab prep. The patient had been brought into the operating room and laid in the left lateral decubitus position. After adequate intravenous sedation, the rectum was examined with 2% lidocaine jelly. The prostate was unremarkable. External hemorrhoids were encountered. The rectal tone was within normal limits. No lesions were palpated in the rectal vault. An Olympus colonoscope was advanced until the cecum, ileocecal valve and appe ndiceal orifice were clearly viewed. The prep was excellent. Sigmoid diverticulosis was encountered. Colonic polyps were found and removed. No evidence of focal colitis was found. Retroflexion of the scope demonstrated grade 3 internal hemorrhoids without active bleeding or inflammation. The colon was desufflated. The patient had tolerated the procedure well. Withdrawal time was over 6 minutes. FINDINGS: Aronchick preparation quality scale 1 (1-5) Internal hemorrhoids, grade 3 External hemorrhoids, grade 4. No arteriovenous malformations. Sigmoid diverticulosis Removal of 6 polyps: - Cold forceps biopsy at 25 cm from the anal verge 2, 4 to 6 mm polyp, sigmoid colon - Cold forceps biopsy at 35 cm from the anal verge 2, 3 to 4 mm polyp, descending colon - Cold forceps biopsy at 40 cm from the anal verge, 4 mm polyp, descending colon - Cold forceps biopsy at mid transverse colon, 5 mm polyp. No focal colitis. RECOMMENDATIONS: Repeat colonoscopy 3 years, 2024 Plan - Discharge Summary Discharge Rx Participant: No New Discharge Prescriptions: Continue Simvastatin 80 mg PO HS fluocinolone acetonide oiL [fluocinolone acetonide oiL 0.01% (Otic)] 5 drop BOTH EARS BID PRN PRN Reason: Itching Aspirin 81 mg PO DAILY 30 Days #30 cap Clopidogrel [Plavix] 75 mg PO DAILY 21 Days #21 tab amLODIPine [Norvasc] 10 mg PO DAILY Ciprofloxacin [Ciprofloxacin Oral Susp] 250 mg PO BID Lansoprazole [Prevacid] 15 mg PO WEEKLY Discharge Medication List Simvastatin 80 mg PO HS 07/19/17 [History] fluocinolone acetonide oiL [fluocinolone acetonide oiL 0.01% (Otic)] 5 drop BOTH EARS BID PRN 07/19/17 [History] Aspirin 81 mg PO DAILY 30 Days #30 cap 07/01/21 [Rx] Clopidogrel [Plavix] 75 mg PO DAILY 21 Days #21 tab 07/01/21 [Rx] Ciprofloxacin [Ciprofloxacin Oral Susp] 250 mg PO BID 02/03/22 [History] amLODIPine [Norvasc] 10 mg PO DAILY 02/03/22 [History] Lansoprazole [Prevacid] 15 mg PO WEEKLY 02/04/22 [History] Follow up Appointment(s)/Referral(s): Kayla Gao MD [STAFF PHYSICIAN] - 02/23/22 Patient Instructions/Handouts: Diverticulosis (ED), Colorectal Polyps (GEN), Diverticulosis Diet (GEN) Activity/Diet/Wound Care/Special Instructions: Start Plavix 02/08/22. Repeat colonoscopy in 3 years, 2024 Discharge Disposition: HOME SELF-CARE
--- NOTE | 2022-02-04 11:20 | P.PCN ---
Date of Procedure: 02/04/22 Description of Procedure: PREOPERATIVE DIAGNOSIS: Gastroesophageal reflux disease. Dysphagia POSTOPERATIVE DIAGNOSIS: Gastroesophageal reflux disease. Presbyesophagus Gastritis. Diaphragmatic hiatal hernia OPERATION: Esophagogastroduodenoscopy with biopsies along antrum and duodenum SURGEON: Kayla Gao MD ANESTHESIA: MAC. INDICATIONS: The patient is a 81-year-old female who presents with dysphagia and reflux disease. Benefits and risks of the procedure were described. Informed consent was obtained. DESCRIPTION: The patient was brought into the endoscopy suite and laid in the left lateral decubitus position. An Olympus pediatric gastroscope was passed along the posterior oropharynx down to the distal esophagus where the squamocolumnar junction was encountered at 35 cm from the incisors. The stomach was entered and no bile reflux was found. Additional findings are listed below. Biopsies with cold forceps were obtained of the antrum. The first through third portion of the duodenum was examined. Retroflexion of the scope confirmed Hill grade 4 lower esophageal valve. The squamocolumnar junction demonstrated LA grade B erosive esophagitis. The stomach was desufflated. The patient tolerated the procedure well. FINDINGS: Squamocolumnar junction 35 cm from the incisors. Diaphragmatic hiatus at 38 cm. Hiatal hernia, 3 cm Hill grade 4 lower esophageal valve. LA grade B erosive esophagitis. Biopsies obtained of duodenum Tertiary contractions consistent with presbyesophagus, mild Chronic gastritis RECOMMENDATIONS: Upper endoscopy as needed.
[2022-02-04 11:24] VITALS: BP 121/81; PULSE 93; RESP 16
== END 2022-02-04 11:44 | disposition home or self-care (01) ==
LOC: ORWHC2ENDO 09:14
PROVIDERS: ATTEND Surgery Plastic and Reconstructive Surgery
DX: Z12.11 Encounter for screening for malignant neoplasm of colon (principal); D12.3 Benign neoplasm of transverse colon; D12.5 Benign neoplasm of sigmoid colon; K57.30 Diverticulosis of large intestine without perforation or abscess without bleeding; K29.50 Unspecified chronic gastritis without bleeding; I10 Essential (primary) hypertension; E78.5 Hyperlipidemia, unspecified; K21.9 Gastro-esophageal reflux disease without esophagitis; G45.9 Transient cerebral ischemic attack, unspecified; K64.8 Other hemorrhoids; K44.9 Diaphragmatic hernia without obstruction or gangrene; K22.89 Other specified disease of esophagus
CPT/HCPCS: 88305; 45380; 43239; J2704; J2001

== ENCOUNTER → 2023-06-28 | Outpatient (CLI) | payer MEDICARE, BC ==
--- NOTE | 2023-06-30 01:02 | MM ---
Reason for Exam: Screening (asymptomatic). Last mammogram was performed 1 year(s) and 2 month(s) ago. Patient History: Menarche at age 18. First Full-Term at age 25. Postmenopausal. Patient has history of breast feeding. Estrogen for 7 years, 7 months, until age 64. Progesterone for 7 years, 7 months, until age 64. Risk Values: Migdalia 5 year model risk: 1.3%. NCI Lifetime model risk: 1.9%. Prior Study Comparison: 06/27/2014 Bilateral Screening Mammogram, [facility]. 10/08/2015 Bilateral Screening Mammogram, [facility]. 03/19/2017 Bilateral Screening Mammogram, [facility]. 09/27/2018 Bilateral Screening Mammogram, [facility]. 05/12/2022 Bilateral MG 3D screening mammo w/cad, [facility]. Tissue Density: There are scattered areas of fibroglandular density. Findings: Analyzed By CAD. The pattern is symmetrical. Benign vascular calcifications within the right breast. Scattered benign punctate calcification is present bilaterally. No suspicious groups of microcalcifications, spiculated or lobular masses, architectural distortion or other secondary signs of malignancy are mammographically apparent. Overall Assessment: Benign, BI-RAD 2 Management: Screening Mammogram of both breasts in 1 year. A negative mammogram report should not preclude additional follow up of suspicious palpable abnormalities. Patient should continue monthly self breast exam. A clinical breast exam by your physician is recommended on an annual basis and results should be correlated with mammographic findings. Electronically signed and approved by: Ivan iTneo D.O. Radiologis
== END | disposition home or self-care (01) ==
LOC: RADMAMWWP 11:11
PROVIDERS: ATTEND Internal Medicine
DX: Z12.31 Encounter for screening mammogram for malignant neoplasm of breast (principal); Z78.0 Asymptomatic menopausal state
CPT/HCPCS: 77063; 77067

== ENCOUNTER → 2023-07-26 | Outpatient (CLI) | payer MEDICARE, BC ==
--- NOTE | 2023-07-29 14:25 | MR ---
EXAMINATION TYPE: MR lumbar spine wo con DATE OF EXAM: 07/26/2023 COMPARISON: None HISTORY: Low back pain that radiates down right leg. CONTRAST: 0 mL intravenous Gadavist. TECHNIQUE: Multiplanar, multisequence images of the lumbar spine were acquired. FINDINGS: There is a scoliosis present. Vertebral body heights are preserved. Disc space narrowing i s present L1-L2 3. Grade 1 spondylolisthesis is present with L3 anterior to L4 and L4 anterior on L5. Cord terminates at the L1 level. L5-S1: Mild disc bulges anterior thecal sac contact. Facet hypertrophy is present. No spinal canal s tenosis. No foraminal stenosis. L4-L5: There is marked ligamentum flavum laxity with facet hypertrophy. This is congenitally related to a large spinal canal stenosis posterior to the superior endplate of L5. Disc uncovering is present contributing to canal narrowing. Moderate to severe foraminal stenosis is present bilaterally L3-L4: Facet hypertrophy has mild posterior lateral thecal sac contact. No AP spinal canal stenosis i s present. Neural foramen are patent. L2-L3: Mild residual disc bulges anterior thecal sac contact. Facet hypertrophy and ligamentum flavum laxity is posterior lateral thecal sac compression. Some spinal canal stenosis is present. There is severe left foraminal stenosis. Correlate with left radicular symptoms. L1-L2: No significant disc bulge or disc herniation. No spinal canal stenosis. No foraminal stenosi s. T12-L1: No significant disc bulge or disc herniation. No spinal canal stenosis. No foraminal stenos is. IMPRESSION: 1. Spinal canal stenosis. This is most severe at the L4-5 level with some canal narrowing is present at L2-3 2. Correlate for left L3 radicular symptoms secondary to severe left foraminal stenosis L2-3.
== END | disposition home or self-care (01) ==
LOC: RADMRIMAIN 20:05
PROVIDERS: ATTEND Orthopaedic Surgery
DX: M48.061 Spinal stenosis, lumbar region without neurogenic claudication (principal); M54.16 Radiculopathy, lumbar region
CPT/HCPCS: 72148

== ENCOUNTER 2023-08-23 06:49 | Emergency (ER) | payer MEDICARE, BC ==
--- NOTE | 2023-08-23 07:28 | ED ---
General Adult HPI - General Chief complaint: Skin/Abscess/Foreign Body Stated complaint: rt leg cut/pain Time Seen by Provider: 08/23/23 06:59 Source: patient, RN notes reviewed, old records reviewed Mode of arrival: ambulatory Limitations: no limitations - History of Present Illness Initial comments: 83-year-old female presenting for wound evaluation. Patient had an abrasion and laceration from a thorn on a mont[place] de oca approximately 10 days ago. She was seen at urgent care and prescribed mupirocin and Keflex. She states that she did initially clean the wound but she believes it was 40 material or park remaining in the wound. She states that the wound is not healing despite antibiotic treatment and presents for evaluation. No fever. - Related Data Home Medications Medication Instructions Recorded Confirmed Simvastatin 80 mg PO HS 07/19/17 02/04/22 fluocinolone acetonide oiL 5 drop BOTH EARS BID PRN 07/19/17 02/04/22 [fluocinolone acetonide oiL 0.01% (Otic)] Ciprofloxacin [Ciprofloxacin Oral 250 mg PO BID 02/03/22 02/04/22 Susp] amLODIPine [Norvasc] 10 mg PO DAILY 02/03/22 02/04/22 Lansoprazole [Prevacid] 15 mg PO WEEKLY 02/04/22 02/04/22 Previous Rx's Medication Instructions Recorded Aspirin 81 mg PO DAILY 30 Days #30 cap 07/01/21 Clopidogrel [Plavix] 75 mg PO DAILY 21 Days #21 tab 07/01/21 Sulfamethox-Tmp 800-160Mg [Bactrim 1 tab PO Q12HR #14 tab 08/23/23 DS 800-160 mg] Allergies Allergy/AdvReac Type Severity Reaction Status Date / Time No Known Allergies Allergy Verified 08/23/23 06:58 Review of Systems ROS Statement: Those systems with pertinent positive or pertinent negative responses have been documented in the HPI. ROS Other: All systems not noted in ROS Statement are negative. Past Medical History Past Medical History: Cancer, CVA/TIA, GERD/Reflux, Hyperlipidemia, Hypertension Additional Past Medical History / Comment(s): osteoporosis. TIA, SKIN CANCER, History of Any Multi-Drug Resistant Organisms: None Reported Past Surgical History: Appendectomy, Ear Surgery Additional Past Surgical History / Comment(s): Colonoscopy . Laparoscopy and D&Cs in the past. Past Anesthesia/Blood Transfusion Reactions: No Reported Reaction, Motion Sickness Past Psychological History: No Psychological Hx Reported Smoking Status: Never smoker Past Alcohol Use History: None Reported Past Drug Use History: None Reported - Past Family History Father Family Medical History: Cancer Additional Family Medical History / Comment(s): Prostate cancer. Mother Family Medical History: Hyperlipidemia General Exam Limitations: no limitations General appearance: alert, in no apparent distress Head exam: Present: atraumatic, normocephalic Eye exam: Present: normal appearance, PERRL ENT exam: Present: normal exam, normal oropharynx Respiratory exam: Absent: respiratory distress Cardiovascular Exam: Present: regular rate, normal rhythm GI/Abdominal exam: Absent: distended Extremities exam: Present: other (There is a 5 cm laceration on the anterior lateral aspect of the mid right perales. There is surrounding erythema. The distal end does appear to have foreign body retained.) Course Vital Signs 08/23/23 06:55 Temperature 98.1 F Pulse Rate 102 H Respiratory 18 Rate Blood Pressure 157/69 O2 Sat by Pulse 97 Oximetry Procedures - Forgein Body Removal Soft Tissue Consent Obtained: verbal consent Site: lower extremity Anesthetic Used: lidocaine 1% Amount (mLs): 5 Foreign Body Suspected: Wood Foreign Body Removed: yes Foreign Body Removal Technique: Instrumentation Patient Tolerated Procedure: well Medical Decision Making - Medical Decision Making Was pt. sent in by a medical professional or institution (BIANCA Jensen, SENIOR COST ACCOUNTANT, urgent care, hospital, or alf...) When possible be specific @ -No Did you speak to anyone other than the patient for history (EMS, parent, family, police, friend...)? What history was obtained from this source @ -No Did you review nursing and triage notes (agree or disagree)? Why? @ -I reviewed and agree with nursing and triage notes Were old charts reviewed (outside hosp., previous admission, EMS record, old EKG, old radiological studies, urgent care reports/EKG's, alf records)? Report findings @ -No old charts were reviewed Differential Diagnosis cellulitis, retained foreign body, laceration EKG interpreted by me (3pts min.). @ -As above X-rays interpreted by me (1pt min.). @ -None done CT interpreted by me (1pt min.). @ -None done U/S interpreted by me (1pt. min.). @ -None done What testing was considered but not performed or refused? (CT, X-rays, U/S, labs)? Why? @ -None What meds were considered but not given or refused? Why? @ -None Did you discuss the management of the patient with other professionals (professionals i.e. , PA, SENIOR COST ACCOUNTANT, lab, RT, psych nurse, social work coordinator, interactive account manager, teacher, aboriginal liaison officer, case management manager)? Give summary @ -No Was smoking cessation discussed for >3mins.? @ -No Was critical care preformed (if so, how long)? @ -No Were there social determinants of health that impacted care today? How? (Homelessness, low income, unemployed, alcoholism, drug addiction, transportation, low edu. Level, literacy, decrease access to med. care, half-way, rehab)? @ -No Was there de-escalation of care discussed even if they declined (Discuss DNR or withdrawal of care, Hospice)? DNR status @ -No What co-morbidities impacted this encounter? (DM, HTN, Smoking, COPD, CAD, Cancer, CVA, ARF, Chemo, Hep., AIDS, mental health diagnosis, sleep apnea, morbid obesity)? @ -None Was patient admitted / discharged? Hospital course, mention meds given and route, prescriptions, significant lab abnormalities, going to OR and other pertinent info. @ -83-year-old female with poorly healing wound from a mont[place] de [place]. There was suspected retained foreign body in the distal aspect of the wound. I was able to anesthetize the wound, cleanse it and remove this material. Patient was on Keflex and topical antibiotics and Bactrim was added for additional coverage. She is given strict return parameters. Undiagnosed new problem with uncertain prognosis? @ -No Drug Therapy requiring intensive monitoring for toxicity (Heparin, Nitro, Insulin, Cardizem)? @ -No Were any procedures done? @ -[Yes, foreign body removal, splinter or bark material Diagnosis/symptom? @ -Cellulitis Acute, or Chronic, or Acute on Chronic? @ -Acute Uncomplicated (without systemic symptoms) or Complicated (systemic symptoms)? @ -Default Side effects of treatment? @ -No Exacerbation, Progression, or Severe Exacerbation? @ -No Poses a threat to life or bodily function? How? (Chest pain, [place], [place], pneumonia, PE, COPD, DKA, ARF, appy, cholecystitis, CVA, Diverticulitis, Homicidal, Suicidal, threat to staff... and all critical care pts) @ -Low risk at this time Disposition Clinical Impression: Cellulitis Disposition: HOME SELF-CARE Condition: Good Instructions (If sedation given, give patient instructions): Cellulitis (ED) Prescriptions: Sulfamethox-Tmp 800-160Mg [Bactrim DS 800-160 mg] 1 tab PO Q12HR #14 tab Is patient prescribed a controlled substance at d/c from ED?: No Referrals: Narinder Mayer MD [Primary Care Provider] - 1-2 days Time of Disposition: 07:28
[2023-08-23] MEDS: LIDOCAINE 1% INJ 10MG/ML (20 ML MDV) SQ ONE (07:31)
[2023-08-23 07:50] VITALS: BP 136/80; PULSE 96; RESP 18; TEMP 98.1
== END 2023-08-23 08:18 | disposition home or self-care (01) ==
LOC: EC 06:49
DX: S81.821A Laceration with foreign body, right lower leg, initial encounter (principal); L03.115 Cellulitis of right lower limb; Z86.73 Personal history of transient ischemic attack (TIA), and cerebral infarction without residual deficits; W26.8XXA Contact with other sharp object(s), not elsewhere classified, initial encounter
CPT/HCPCS: 93971; 99283; J2001

== ENCOUNTER 2023-08-26 06:00 | Emergency (ER) | payer MEDICARE, BC ==
[2023-08-26 06:24] VITALS: BP 133/78; PULSE 99; RESP 19; TEMP 98.3
--- NOTE | 2023-08-26 06:29 | ED ---
Wound/Laceration HPI - General Stated Complaint: rt leg pain Time Seen by Provider: 08/26/23 06:28 Source: patient, RN notes reviewed Mode of arrival: ambulatory - History of Present Illness Initial Comments: 83-year-old female presented to the ER with a chief complaint of a wound check. Patient scraped or right calf against a [place] de [place] and states she got a splinter in her leg about 5 days ago. She was seen here on 08-23-2023 and had a foreign body which is believed to be wood removed from her right calf. Patient was started on Bactrim and Keflex. Patient reports the wound is currently burning and does not appear to be healing properly. She denies any purulent drainage. She denies any new injuries and has been taking antibiotics as prescribed. She denies any other complaints. - Related Data Home Medications Medication Instructions Recorded Confirmed Simvastatin 80 mg PO HS 07/19/17 02/04/22 fluocinolone acetonide oiL 5 drop BOTH EARS BID PRN 07/19/17 02/04/22 [fluocinolone acetonide oiL 0.01% (Otic)] Ciprofloxacin [Ciprofloxacin Oral 250 mg PO BID 02/03/22 02/04/22 Susp] amLODIPine [Norvasc] 10 mg PO DAILY 02/03/22 02/04/22 Lansoprazole [Prevacid] 15 mg PO WEEKLY 02/04/22 02/04/22 Previous Rx's Medication Instructions Recorded Aspirin 81 mg PO DAILY 30 Days #30 cap 07/01/21 Clopidogrel [Plavix] 75 mg PO DAILY 21 Days #21 tab 07/01/21 Sulfamethox-Tmp 800-160Mg [Bactrim 1 tab PO Q12HR #14 tab 08/23/23 DS 800-160 mg] Allergies Allergy/AdvReac Type Severity Reaction Status Date / Time No Known Allergies Allergy Verified 08/26/23 06:24 Review of Systems ROS Statement: Those systems with pertinent positive or pertinent negative responses have been documented in the HPI. ROS Other: All systems not noted in ROS Statement are negative. Past Medical History Past Medical History: Cancer, CVA/TIA, GERD/Reflux, Hyperlipidemia, Hypertension Additional Past Medical History / Comment(s): osteoporosis. TIA, SKIN CANCER, History of Any Multi-Drug Resistant Organisms: None Reported Past Surgical History: Appendectomy, Ear Surgery Additional Past Surgical History / Comment(s): Colonoscopy . Laparoscopy and D&Cs in the past. Past Anesthesia/Blood Transfusion Reactions: No Reported Reaction, Motion Sickness Past Psychological History: No Psychological Hx Reported Smoking Status: Never smoker Past Alcohol Use History: None Reported Past Drug Use History: None Reported - Past Family History Father Family Medical History: Cancer Additional Family Medical History / Comment(s): Prostate cancer. Mother Family Medical History: Hyperlipidemia General Exam General appearance: alert, in no apparent distress Respiratory exam: Present: normal lung sounds bilaterally. Absent: respiratory distress, wheezes, rales, rhonchi, stridor Cardiovascular Exam: Present: regular rate, normal rhythm, normal heart sounds. Absent: systolic murmur, diastolic murmur, rubs, gallop, clicks Extremities exam: Present: normal inspection, full ROM, normal capillary refill. Absent: tenderness, pedal edema, joint swelling, calf tenderness Skin exam: Present: other (2 cm healing wound on right calf. No purulent drainage or surrounding erythema. 2+ right PT pulse. Sensation intact.) Course Vital Signs 08/26/23 06:19 Temperature 98.3 F Pulse Rate 99 Respiratory 19 Rate Blood Pressure 133/78 O2 Sat by Pulse 98 Oximetry Medical Decision Making - Medical Decision Making Was pt. sent in by a medical professional or institution (, PA, TUBE REPAIRER, urgent care, hospital, or correction...) When possible be specific @ -No Did you speak to anyone other than the patient for history (EMS, parent, family, police, friend...)? What history was obtained from this source @ -No Did you review nursing and triage notes (agree or disagree)? Why? @ -I reviewed and agree with nursing and triage notes Were old charts reviewed (outside hosp., previous admission, EMS record, old EKG, old radiological studies, urgent care reports/EKG's, correction records)? Report findings @ -Yes, I reviewed ER chart from 08-23-2023. Patient had a foreign body removed from right calf and was started on Bactrim and Keflex. Patient was discharged home. Differential Diagnosis (chest pain, altered mental status, abdominal pain women, abdominal pain men, vaginal bleeding, weakness, fever, dyspnea, syncope, headache, dizziness, GI bleed, back pain, seizure, CVA, palpatations, mental health, musculoskeletal)? @ -Laceration, abrasion, contusion, avulsion, foreign body this list is not meant to be all-inclusive EKG interpreted by me (3pts min.). @ -None X-rays interpreted by me (1pt min.). @ -None done CT interpreted by me (1pt min.). @ -None done U/S interpreted by me (1pt. min.). @ -None done What testing was considered but not performed or refused? (CT, X-rays, U/S, labs)? Why? @ -None What meds were considered but not given or refused? Why? @ -None Did you discuss the management of the patient with other professionals (professionals i.e. Dr., PA, TUBE REPAIRER, lab, RT, psych nurse, social media assistant, aerial photographer, teacher, guest services officer, case management manager)? Give summary @ -No Was smoking cessation discussed for >3mins.? @ -No Was critical care preformed (if so, how long)? @ -No Were there social determinants of health that impacted care today? How? (Homelessness, low income, unemployed, alcoholism, drug addiction, transportation, low edu. Level, literacy, decrease access to med. care, senior living, rehab)? @ -No Was there de-escalation of care discussed even if they declined (Discuss DNR or withdrawal of care, Hospice)? DNR status @ -No What co-morbidities impacted this encounter? (DM, HTN, Smoking, COPD, CAD, Cancer, CVA, ARF, Chemo, Hep., AIDS, mental health diagnosis, sleep apnea, morbid obesity)? @ -None Was patient admitted / discharged? Hospital course, mention meds given and route, prescriptions, significant lab abnormalities, going to OR and other pertinent info. @ -Discharge. 83-year-old female presented to the ER with a chief complaint of wound check. Patient seen here on 08-23-2023 and had a foreign body which is believed to be a splinter removed from her right calf. Patient was started on Bactrim and Keflex. History and physical exam completed. Vitals stable. Patient in no signs of acute distress and nontoxic-appearing. 2 cm healing wound on right calf. No evidence of infection. Right lower extremity neurovascular intact. Findings discussed with patient, all questions answered. I advised patient to continue taking prescribed antibiotics and to follow-up closely with PCP. Strict return parameters discussed. Patient discharged in st able condition. Patient verbally expressed understanding and agreement with care plan. Case discussed with ED attending, Dr. Myers. Undiagnosed new problem with uncertain prognosis? @ -No Drug Therapy requiring intensive monitoring for toxicity (Heparin, Nitro, Insulin, Cardizem)? @ -No Were any procedures done? @ -No Diagnosis/symptom? @ -Wound check Acute, or Chronic, or Acute on Chronic? @ -Acute Uncomplicated (without systemic symptoms) or Complicated (systemic symptoms)? @ -Uncomplicated Side effects of treatment? @ -No Exacerbation, Progression, or Severe Exacerbation? @ -No Poses a threat to life or bodily function? How? (Chest pain, [place], [place], pneumonia, PE, COPD, DKA, ARF, appy, cholecystitis, CVA, Diverticulitis, Homicidal, Suicidal, threat to staff... and all critical care pts) @ -No Disposition Clinical Impression: Visit for wound check Disposition: HOME SELF-CARE Condition: Stable Instructions (If sedation given, give patient instructions): Acute Wound Care (ED) Additional Instructions: Complete full course of antibiotics. Follow-up with PCP. Return to the ER for any new or worsening concerns. Is patient prescribed a controlled substance at d/c from ED?: No Referrals: Narinder Mayer MD [Primary Care Provider] - 1-2 days Time of Disposition: 06:29
== END 2023-08-26 06:32 | disposition home or self-care (01) ==
LOC: EC 06:00
DX: Z48.01 Encounter for change or removal of surgical wound dressing (principal)
CPT/HCPCS: 99283

== ENCOUNTER → 2023-08-26 | Outpatient (CLI) | payer MEDICARE, BC ==
--- NOTE | 2023-08-28 19:07 | CT ---
EXAMINATION TYPE: CT lumbar spine wo con CT DLP: 587.30 mGycm, Automated exposure control for dose reduction was used. DATE OF EXAM: 08/26/2023 8:57 AM COMPARISON: MR lumbar spine 07/26/2023. 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 Soft tissue and bone windows in coronal and sagittal planes were obtained and reviewed. Contrast used:none. Oral contrast used: none. FINDINGS: Alignment: There are 5 lumbar type vertebral bodies. Grade 1 anterolisthesis of L3 on L4, L4 on L5, a nd L5 on S1. No pars defects. Levoscoliosis with apex at L1. Bone: No evidence of fracture is identified. Multilevel anterior osteophytosis which is most promine nt at L4-L5. Multilevel endplate sclerosis. Multilevel facet arthropathy which is most pronounced fro m L3 through S1. Discs: Vacuum disc disease at L1-L2, L4-L5 and L5-S1. T12-L1: No spinal canal or neural foraminal stenosis is identified. L1-L2: No spinal canal or neural foraminal stenosis is identified. L2-L3: Broad-based disc bulge with mild central canal stenosis. Mild right and moderate left neurofor aminal stenosis. L3-L4: Grade 1 anterolisthesis with broad-based disc bulge resulting in minimal central canal stenosi s. Mild bilateral neuroforaminal stenosis. L4-L5: Grade 1 anterolisthesis with broad-based disc bulge. [id number] central canal stenosis. Moderate bilateral neural foraminal stenosis. L5-S1: Grade 1 anterolisthesis with broad-based disc bulge resulting in minimal central canal stenosi s. Moderate right and mild left neural foraminal stenosis. Other: Left renal sinus cysts. Sigmoid diverticulosis. IMPRESSION: 1. No evidence for spinal fracture. 2. Multilevel degenerative disc disease and facet arthropathy. Most prominent at L4-L5 with mild to m oderate central canal stenosis and L2-L3 with mild central canal stenosis. 3. Levoscoliosis with grade 1 anterolisthesis of L3 on L4, L4 on L5, and L5 on S1.
== END | disposition home or self-care (01) ==
LOC: RADCTMAIN 08:35
PROVIDERS: ATTEND Orthopaedic Surgery
DX: M47.816 Spondylosis without myelopathy or radiculopathy, lumbar region (principal); M51.36 Other intervertebral disc degeneration, lumbar region; M48.061 Spinal stenosis, lumbar region without neurogenic claudication; M43.16 Spondylolisthesis, lumbar region
CPT/HCPCS: 72131

== ENCOUNTER 2023-09-01 08:40 | Emergency (ER) | payer MEDICARE, BC ==
[2023-09-01 08:52] VITALS: TEMP 97.8
--- NOTE | 2023-09-01 09:13 | ED ---
Lower Extremity Injury HPI - General Chief Complaint: Extremity Injury, Lower Stated Complaint: wound on R leg Time Seen by Provider: 09/01/23 08:52 Source: patient, RN notes reviewed Mode of arrival: ambulatory Limitations: no limitations - History of Present Illness Initial Comments: This is an 83-year-old female who presents to the emergency department for a wound to the right lower extremity. Patient states that she scraped her leg on a [place] a few weeks ago causing a laceration from what she believes may have been a thorn or something else that was sharp. She was started on antibiotics and has had problems with this healing appropriately. States that it seems like it is finally starting to heal well, however she feels a lump underneath the scab and is concerned about a residual foreign body. States that after the initial injury she was able to remove some pieces of what she believes may have been bark or other material herself. Denies any fevers or chills. The area does continue to be painful. - Related Data Home Medications Medication Instructions Recorded Confirmed Simvastatin 80 mg PO HS 07/19/17 02/04/22 fluocinolone acetonide oiL 5 drop BOTH EARS BID PRN 07/19/17 02/04/22 [fluocinolone acetonide oiL 0.01% (Otic)] Ciprofloxacin [Ciprofloxacin Oral 250 mg PO BID 02/03/22 02/04/22 Susp] amLODIPine [Norvasc] 10 mg PO DAILY 02/03/22 02/04/22 Lansoprazole [Prevacid] 15 mg PO WEEKLY 02/04/22 02/04/22 Previous Rx's Medication Instructions Recorded Aspirin 81 mg PO DAILY 30 Days #30 cap 07/01/21 Clopidogrel [Plavix] 75 mg PO DAILY 21 Days #21 tab 07/01/21 Sulfamethox-Tmp 800-160Mg [Bactrim 1 tab PO Q12HR #14 tab 08/23/23 DS 800-160 mg] Allergies Allergy/AdvReac Type Severity Reaction Status Date / Time No Known Allergies Allergy Verified 08/26/23 06:24 Review of Systems ROS Statement: Those systems with pertinent positive or pertinent negative responses have been documented in the HPI. ROS Other: All systems not noted in ROS Statement are negative. Past Medical History Past Medical History: Cancer, CVA/TIA, GERD/Reflux, Hyperlipidemia, Hypertension Additional Past Medical History / Comment(s): osteoporosis. TIA, SKIN CANCER, History of Any Multi-Drug Resistant Organisms: None Reported Past Surgical History: Appendectomy, Ear Surgery Additional Past Surgical History / Comment(s): Colonoscopy . Laparoscopy and D&Cs in the past.parathyroid Past Anesthesia/Blood Transfusion Reactions: No Reported Reaction, Motion Sickness Past Psychological History: No Psychological Hx Reported Smoking Status: Never smoker Past Alcohol Use History: None Reported Past Drug Use History: None Reported - Past Family History Father Family Medical History: Cancer Additional Family Medical History / Comment(s): Prostate cancer. Mother Family Medical History: Hyperlipidemia General Exam Limitations: no limitations General appearance: alert, in no apparent distress Head exam: Present: atraumatic, normocephalic, normal inspection Respiratory exam: Present: normal lung sounds bilaterally. Absent: respiratory distress, wheezes, rales, rhonchi, stridor Cardiovascular Exam: Present: regular rate, normal rhythm, normal heart sounds. Absent: systolic murmur, diastolic murmur, rubs, gallop, clicks Extremities exam: Present: other (Scab to an area of the right tib-fib that appears to be healing well. There is a palpable lump underneath the scab. There is no surrounding erythema or warmth. Generalized tenderness.) Neurological exam: Present: alert, oriented X3, CN II-XII intact Psychiatric exam: Present: normal affect, normal mood Course Vital Signs 09/01/23 09/01/23 08:48 10:52 Temperature 97.8 F Pulse Rate 100 70 Respiratory 20 18 Rate Blood Pressure 153/71 110/76 O2 Sat by Pulse 98 98 Oximetry Medical Decision Making - Medical Decision Making This is an 83 year old female who presents to the emergency department for right leg pain. Was pt. sent in by a medical professional or institution? @ -No Did you speak to anyone other than the patient for history? @ -No Did you review nursing and triage notes? @ -Yes, and I agree, it is accurate with regards to the patient's symptoms. Were old charts reviewed? @ -No Differential Diagnosis? @ -Differential Musculoskeletal: Muscular strain, contusion, ligament sprain, fracture, arthritis, septic arthritis, bursitis, cellulitis, muscle spasm, nerve compression, DVT, arterial occlusion, herpes zoster, electrolyte abnormality, tumor.... This is not meant to be in all inclusive list EKG interpreted by me (3pts min.)? @ -Not obtained X-rays interpreted by me (1pt min.)? @ -X-ray of the right tib-fib obtained. My interpretation identifies no acute fractures. CT interpreted by me (1pt min.)? @ -Not obtained U/S interpreted by me (1pt. min.)? @ -Not obtained What testing was considered but not performed? (CT, X-rays, U/S, labs)? Why? @ -None What meds were considered but not given? Why? @ -None Did you discuss the management of the patient with other professionals? @ -No Did you reconcile home meds? @ -No Was smoking cessation discussed for >3mins.? @ -No Was critical care preformed (if so, how long)? @ -No Were there social determinants of health that impacted care today? How? (Homelessness, low income, unemployed, alcoholism, drug addiction, transportation, low edu. Level, literacy, decrease access to med. care, fdc, rehab)? @ -No Was there de-escalation of care discussed even if they declined? (Discuss DNR or withdrawal of care, Hospice)? @ -No What co-morbidities impacted this encounter? (DM, HTN, Smoking, COPD, CAD, Cancer, CVA, Hep., AIDS, mental health diagnosis, sleep apnea, morbid obesity)? @ -None Was patient admitted / discharged? @ -Discharged. X-ray of the right tib-fib obtained revealing no acute fracture s. There are multiple calcific densities to the anterior proximal leg and distal thigh. The abrasion is more so to the distal aspect and not in these areas. The scab over the affected area was barely attached. This was removed and the area was cleansed. She had thicker skin from the healing, which was likely causing the foreign body sensation. I was unable to find any additional foreign bodies when I was cleaning the wound. Advised that she can continue with antibiotic ointment as needed. She has already been on multiple courses of oral antibiotics and the wound does not currently appear infected. Advised follow-up with her primary care provider for reevaluation. Undiagnosed new problem with uncertain prognosis? @ -None Drug Therapy requiring intensive monitoring for toxicity (Heparin, Nitro, Insulin, Cardizem)? @ -None Were any procedures done? @ -None Diagnosis/symptom? @ -Right leg abrasion Acute, or Chronic, or Acute on Chronic? @ -Acute Uncomplicated (without systemic symptoms) or Complicated (systemic symptoms)? @ -Uncomplicated Side effects of treatment? @ -None Exacerbation, Progression, or Severe Exacerbation] @ -Not applicable Poses a threat to life or bodily function? @ -No Return precautions reviewed in depth, the patient is instructed to return to the emergency department with any new, worsening, or concerning symptoms. Patient verbalized understanding. This case was discussed in detail with the attending ED physician, Dr. Enciso. Presentation, findings, and treatment plan discussed in detail as well. - Radiology Data Radiology results: report reviewed, image reviewed Disposition Clinical Impression: Wound of right leg Disposition: HOME SELF-CARE Additional Instructions: Return to the emergency department with any new, worsening, or concerning symptoms. Continue to use antibiotic ointment. You can take Tylenol as needed for pain relief. Follow up with your primary care provider in 1-2 days. Is patient prescribed a controlled substance at d/c from ED?: No Referrals: Narinder Mayer MD [Primary Care Provider] - 1-2 days Time of Disposition: 10:43
--- NOTE | 2023-09-01 10:09 | XR ---
EXAMINATION TYPE: XR tibia fibula RT DATE OF EXAM: 09/01/2023 9:35 AM CLINICAL INDICATION:Female, 83 years old with history of Injury, possible foreign body; [facility] COMPARISON: None TECHNIQUE: XR tibia fibula RT; tibia/fibula was examined in AP and lateral projections. FINDINGS: No evidence of any acute osseous pathology, joint dislocation, or soft tissue swelling is n oted. Calcific density anterior upper anterior leg and anterior distal thigh. No metallic densities i dentified. IMPRESSION: 1. No evidence of acute fracture. 2. Multiple calcific densities anterior proximal leg and distal thigh correlate for left-sided granu randell versus radiopaque foreign body.
[2023-09-01 10:53] VITALS: BP 110/76; PULSE 70; RESP 18
== END 2023-09-01 10:52 | disposition home or self-care (01) ==
LOC: EC 08:40
DX: S80.811A Abrasion, right lower leg, initial encounter (principal); X58.XXXA Exposure to other specified factors, initial encounter
CPT/HCPCS: 99283

== ENCOUNTER → 2023-10-14 | Outpatient (CLI) | payer MEDICARE, BC | END | disposition home or self-care (01) | LOC: LABPAT 12:03 | PROVIDERS: ATTEND Orthopaedic Surgery | DX: Z01.812 Encounter for preprocedural laboratory examination (principal); M48.062 Spinal stenosis, lumbar region with neurogenic claudication; M43.16 Spondylolisthesis, lumbar region; Z22.322 Carrier or suspected carrier of Methicillin resistant Staphylococcus aureus | CPT/HCPCS: 86850; 86900; 86901; 87070 ==

== ENCOUNTER 2023-10-24 10:52 | Day surgery (SDC) | payer MEDICARE, BC ==
--- NOTE | 2023-10-23 09:09 | P.HPOR ---
History of Present Illness H&P Date: 10/14/23 .D:Date: 10/14/23 : 11:07am .T:Title: *Russell MAY [facility] Age: 83 year Height: 5'3" Weight: 150 lbs BMI: 26.57 kg/m2 Occupation: Retired VAS: 4 IMPRESSION: It was my pleasure to have seen and examinedNancy.I reviewed the patient's clinical syndrome, physical findings, and imaging studies during the appointment today. It is my impression that the patient has a diagnosis of. 1. Grade I spondylolisthesis of L3 on L4, L4 on L5, and L5 on S1 2. L3-S1 spondylosis with stenosis 3. Bilateral lower extremity radiculopathy 4. Bilateral lower extremity weakness 5. Neurogenic claudication The patients' past social, medical, family, surgical history, as well as review of systems, have been reviewed. Please refer to the Neurosurgery History and Physical form that has been scanned into our electronic medical record system. 16 points review of systems completed and as stated in HPI, all other systems reviewed are negative. PAST TREATM ENTS: PAST IMAGING: - Yes TRAUMA RELATED: - No WORK RELATED: - No PT IN LAST 6 MONTHS: - Yes; mild, temporary relief PHYSICIAN DIRECTED HOME EXERCISE PROGRAM: - Yes; mild, temporary relief ACTIVITY MODIFICATION: - Yes MEDICATIONS: - OTC Motrin & Tylenol ALTERNATIVE INTERVENTIONS (CHIROPRACTIC, ACUPUNCTURE, MASSAGE, RICE): - Yes (home heat/ice therapies & rest); no relief BRACING: - No INJECTIONS (AME, TF, RFA): - None MEDICAL HISTORY: Past Medical History: Reviewed, see appropriate section of the chart for details. Past Spine Surgical History: None Social History: Reviewed, see appropriate section of the chart for details. Family History: Reviewed, see appropriate section of the chart for details. Current Medications: P1Rx: amLODIPine 10 mg tablet Ref: 0 Instructions: take 1 tablet (10 mg) by oral route once daily Rx: aspirin 81 mg tablet,delayed release Ref: 0 Instructions: take 1 tablet (81 mg) by oral route once daily Rx: B12 Ref: 0 Rx: clopidogreL 75 mg tablet Ref: 0 Rx: D3-2000 50 mcg (2,000 unit) capsule Ref: 0 Rx: Prevacid Ref: 0 Rx: simvastatin 80 mg tablet Ref: 0 Rx: Calcium 600 mg calcium (1,500 mg) tablet Ref: 0 Rx: Vitamin C 500 mg tablet Ref: 0 P1 PHYSICAL EXAM: General: AOX3, NAD, Well hydrate, Well nourished HEENT: No lumps or masses Extremities: No color changes, no pooling INTEGUMENT: Appearance:Normal color and turgor Surgical Incisions: None Hairy Patches: ABSENT Dorsal Skin Dimples: Normal [employer] spots: ABSENT PALPATION: TTP Midline:NO Paracervical:NO Parathoracic:NO Paralumbar:NO SIJ TESTING: TTP (NONE) [place] Finger:- FABER4:- Compression: - | Distraction:- Thigh thrust:- | Hip thrust: - POSTURAL BALANCE: Coronal:BALANCED Sagittal:BALANCED Shoulder height: LEVEL Pelvic Girdle: LEVEL ROM AND APPEARANCE: Neck:UNRESTRICTED Lumbar:UNRESTRICTED Shoulders: Symmetrical Hips: Symmetrical Knees: Symmetrical Hands: Symmetrical Feet: Symmetrical VASCULAR STATUS: RUE- 2 LUE-2 RLE-2 LLE-2 Edema: NONE NEUROLOGICAL EXAMINATION: Mental Status: Awake, alert, oriented fully with normal attention, concentration and memory. Fluent appropriate speech. CRANIAL NERVES: I: Olfactory not tested. II: Visual acuity normal, no visual field deficit noted with confrontation. III,IV: Normal pupillary reflexes & intact extraocular movements without nystagmus. V,: Intact symmetrical facial sensation. VII: Intact symmetrical facial motor movementVIII: Hearing intact. IX,X: Intact gag, swallow, & normal voice. XI: Sternocleidomastoid, trapezius function intact. XII: Tongue midline with normal movements. TENSIONING: L'HERMITTE'S SIGN NEG SPURLUNG'S SIGN NEG CUBITAL COMPRESSION NEG TINELS AT WRIST NEG SLR/CROSSED SLR NEG MOTOR EXAM (0-5/5, NT) Muscle appearance:Symmetrical, without signs of atrophy or dystrophy UPPER EXTREMITY RIGHT LEFT Shoulder Abduction 5 5 Biceps 5 5 Triceps 5 5 Wrist Extension 5 5 Hand Intrnsics 5 5 Paper Slitter 5 5 LOWER EXTREMITY RIGHT LEFT Hip Flexion 4 5 Knee Extension 4 5 Knee Flexion 4 5 Dorsiflexion 4 5 Plantarflexion 4 5 EHL 5 5 FHL 5 5 REFLEXES (0-4/2, NT): RIGHT LEFT Bicep 2 2 Brachioradialis 2 2 Tricep 2 2 Patellar 2 2 Achilles 2 2 PATHOLOGICAL REFLEXES: RIGHT LEFT BARILLAS'S ABSENT ABSENT CLONUS ABSENT ABSENT BABINSKI ABSENT ABSENT Rectal Tone: INTACT SENSATION (0-4, NT): RUE-2LUE-2 RLE-2 LLE-2 Dermatomal deficit: GAIT AND FUNCTIONAL EVALUATION: -Ambulatory aids - INDEPENDENT -Rombergs test - NEG -Hand and finger dexterity intact bilaterally? YES -Dysdiadochokinesia examination negative bilaterally? YES -Toe heel walk / heel-toe walk intact while maintaining satisfactory balance? YES -Squatting/straightening w/o assistance to a min of 60 degree knee flexion? YES -Single leg stance: ABLE -Trendelenburg sign NEGATIVE B/L Spine Surgery Risk Review Ms. Au is presenting for evaluation of low back and bilateral lower e xtremity pain, bilateral lower extremity numbness, tingling, and weakness. It was my pleasure to have seen and examined Ms. Au. In our visit today we have had a chance to go over subjective complaints, physical examination findings and treatments including the natural course history without intervention and various interventional options. The patients imaging demonstrates: No new imaging today. Previous imaging reviewed with pt including XR, MRI and CT scans. These show multilevel spondylosis, severe, with Grade I and II spondylolisthesis from L3-S1. Worst level is L4-5 with Grade II unstable spondylolisthesis, unstable. Pars elongation, b/l foraminal stenosis that is severe as well as central stenosis that is severe. Boggy facets with severe facet arthropathy, disc degeneration and collapsed as well. No fractures noted. no lesions noted. On physical exam, Ms. Au demonstrates: A continued ache-like pain across the low back that radiates down into the bilateral lower extremities, right worse than left. The patient states her lower extremity pain is associated with numbness and tingling bilaterally. She states her current symptoms worsen after all activity. She notes progressive bilateral lower extremity weakness. The patient notes her right leg is much more weak then the left at this time. She reports experiencing severe sleep disturbances related to her ongoing pain and associated symptoms. I have explained to the patient that as their condition progresses it will cause further neurological deficits and eventual paralysis. Based on the patients imaging, physical exam, and the rapid progression and disabling nature of their symptoms, at this time I recommend surgery in the form of a: Right-sided L4-5 MIS TLIF. I discussed the risk and benefits of this procedure at length with Ms. Au. The patient agreed to considered pursuing the procedure abovementioned. Prior to surgery, she should follow up with her PCP (Cardio, ID, IM etc) for clearance. Questions were invited and answered, and the patient wishes to proceed as outlined below. Currently, I am recommendin.RIGHT L4-5 MINIMALLY INVASIVE POSTEROLATERAL AND INTERBODY FUSION 2.Review of surgical risks and benefits as well as an educational packet on the proposed surgical procedure. Risks: All surgical procedures come with inherent risks, including those related to positioning, anesthesia, intraoperative findings, and postoperative complications. It is important to understand that surgery does not come with any guarantee of a successful outcome as complications and adverse events are always possible. The patient was given a handout in office today discussing the surgical procedure and risks associated with the intervention, both of which were discussed with the patient. These risks include but are not limited to the following: * Experiencing same, different or even worse symptoms in back, neck, arms, or legs compared to before surgery. Requiring further surgery or other forms of treatment presently or at some time in the future at same or other levels of the intended spine surgery. On an extreme but fortunately relatively rare basis severe complication such as blindness, stroke, heart attack, temporary and/or permanent nerve injury, paralysis, coma, or may occur, sometimes without known explanation. Surgical complications may include but are not limited to risk of infection, fluid accumulation in the surgical dissection site, including a seroma or hematoma, that requires additional surgery, wound drainage, bleeding, new numbness or weakness, vision changes/loss, spinal fluid leakage, non-healing and/or infected incision, headaches, difficulty or inability to swallow, hoarseness, hemopneumothorax, pneumothorax, impotence, retrograde ejaculation, vaginal dryness; injury to nerves, spinal cord, blood vessels, lymphatics or other vital organs (i.e., bowel injury, injury to the great vessels); heterotopic bone formation; complications related to the hardware such as screws, rods, cages including misplaced hardware, device failure, instrumentation at the wrong spine level, hardware fracture/breakage, or hardware loosening; vertebral failure of the spinal column above or below the newly placed hardware; retained surgical instrumentations or devices and the need for further surgery. * Medical risks of the planned spine surgery include but are not limited to generalized Infections to the whole body or local areas outside of the surgical site (sepsis), heart attack, bleeding, anaphylaxis, meningitis, seizure, epilepsy, hearing loss, burn dwyer, laceration of the head or other areas of the body, bruising, hypersensitivity of the skin, bladder over distension; allergic reaction; shoulder injury related to positioning; fat, blood and air clots to other areas of the body like heart, lungs, brain; failure of internal organs such as lungs, kidneys, liver and excessive bleeding. If blood transfusions are necessary, note that transfusions may cause intolerance reactions such as anaphylaxis or other complex reactions. Despite best efforts, the results of spine surgery might not heal in terms of bone, soft tissues such as skin, fascia, ligaments, and joints. Additionally, in order to achieve best possible results, spine surgery may be carried out beyond the initially planned levels and involve decompression, fusion including insertion of hardware at levels other than the original intended area of surgical interest change some portions of the procedure in order to ensure the best possible outcomes. With spine surgery and spinal fusion, there are different off label uses of instrumentation (devices, implants and hardware) as well as biological substances (bone morphogenic proteins, demineralized bone matrix) as well as using extra bone from allograft sources (i.e. cadaver bone) or autograft (iliac crest bone, ribs, or the spine itself). The patient has been given information about these practices and their inherent risks and benefits. [facility] is an educational center that serves as a training facility for neurosurgical and orthopedic MOBILE ENGINEER and Nursing students. Physician assistants are medically trained surgical providers who function in the outpatient, inpatient, and operating room setting under the direct supervision of the attending surgeon. [facility] has multiple operating rooms with single and overlapping rooms running daily. They currently function under the required guidelines as produced by the [facility] with regards to the overlapping rooms and will continue to comply with changes to this policy as they occur. The requirements include and are complied with as follows: (1) the critical portions of the overlapping rooms will not occur at the same time, (2) the attending physician will be physically present during the critical portions of the procedure and immediately available during the entire case, and (3) a back-up attending is designated should the primary attending not be immediately available. The patient has had a chance to review all the listed information, has been given print outs detailing this information, and has had all his/her questions answered to their satisfaction. It was my pleasure to have seen and examined Ms. Au. In our visit today we have had a chance to go over my understanding of our patient's current condition, the natural course history without intervention and various interventional options. Questions were invited and answered, and the patient wishes to proceed as outlined above. I have seen and examined the patient for 25 minutes and we have spent more than 50% of the time in repeat and detailed counseling about the patient's condition, its natural course history with out and as much as can be predicted with surgery and re-review of various surgical treatment options. In conclusion, Ms. Au requested we proceed with the above suggested surgery and are willing to accept risks and limitations of the suggested surgery as nature of the disease process and our best attempts at treatment for the condition. FOLLOW UP: Post Procedure PLAN AT NEXT VISIT: X-rays of lumbar spine (AP/LAT) PATIENT EDUCATION: Medications Reviewed: YES In our visit today Ms. Au and I have had a chance to go over my understanding of the patient's current condition, the natural course history without intervention and various interventional options. Questions were invited and answered, and the patient wishes to proceed as outlined above. I will be sure to keep you updated after Ms. Au returns here for further follow-up. Thank you again for your referral. Please do not hesitate to contact me if you have any further questions. Signed and authenticated by: Santi Suggs [facility] [address] [place] [address] . This message is confidential, intended only for the named recipient(s) and may contain information that is privileged or exempt from disclosure under applicable law. If you are not the intended recipient(s), you are notified that the dissemination, distribution or copying of this information is prohibited. If you received this message in error, please notify the sender then delete this message. Past Medical History Past Medical History: Cancer, CVA/TIA, GERD/Reflux, Hyperlipidemia, Hypertension Additional Past Medical History / Comment(s): VERTIGO. CVA SEVERAL YEARS AGO. osteoporosis. SKIN CANCER. History of Any Multi-Drug Resistant Organisms: None Reported Past Surgical History: Appendectomy, Ear Surgery Additional Past Surgical History / Comment(s): Colonoscopy . Laparoscopy and D&Cs in the past.parathyroid Past Anesthesia/Blood Transfusion Reactions: No Reported Reaction, Motion Sickness Past Psychological History: No Psychological Hx Reported Smoking Status: Never smoker Past Alcohol Use History: Occasional Past Drug Use History: None Reported - Past Family History Father Family Medical History: Cancer Additional Family Medical History / Comment(s): Prostate cancer. Mother Family Medical History: Hyperlipidemia Medications and Allergies Home Medications Medication Instructions Recorded Confirmed Type Simvastatin 80 mg PO HS 07/19/17 10/21/23 History fluocinolone acetonide oiL 5 drop BOTH EARS BID PRN 07/19/17 10/21/23 History [fluocinolone acetonide oiL 0.01% (Otic)] Aspirin 81 mg PO DAILY 30 Days #30 cap 07/01/21 10/21/23 Rx Clopidogrel [Plavix] 75 mg PO DAILY 21 Days #21 tab 07/01/21 10/21/23 Rx amLODIPine [Norvasc] 10 mg PO QAM 02/03/22 10/21/23 History Lansoprazole [Prevacid] 15 mg PO Q48H 02/04/22 10/21/23 History Cranberry Fruit Extract [Cranberry] 1 cap PO DAILY 10/21/23 10/21/23 History Cyanocobalamin (Vitamin B-12) 1 tab PO DAILY 10/21/23 10/21/23 History [Vitamin B-12] Ibuprofen [Advil] 200 - 400 mg PO Q6H PRN 10/21/23 10/21/23 History Allergies Allergy/AdvReac Type Severity Reaction Status Date / Time No Known Allergies Allergy Verified 10/21/23 08:59 Physical Examination Osteopathic Statement: *. No significant issues noted on an osteopathic structural exam other than those noted in the History and Physical/Consult.
[~2023-10-24 10:52] MED LIST changes: -LACTATED RINGERS 1,000 ML IV SCH; -LIDOCAINE 1% (10MG/ML) FOR IV START INTRADERMA PRN; +ONDANSETRON 4 MG/2 ML VIAL IVP PRN; +TRANEXAMIC 1,000 MG/100ML-NACL 1,000 MG in SALINE 1 100ML.BAG IVPB PRN
[2023-10-24] MEDS: IV FLUID CONTINUATION 1,000 ML IV ONE ×4 (11:10→18:25)
[2023-10-24] MEDS: ACETAMINOPHEN TAB 500 MG TAB PO PRN (11:44)
[2023-10-24] MEDS: GABAPENTIN 300 MG CAP PO PRN (11:45)
[2023-10-24] MEDS: ONDANSETRON 4 MG/2 ML VIAL IVP ONE (11:45)
[2023-10-24] MEDS: LACTATED RINGERS 1,000 ML IV SCH (11:47)
[2023-10-24] MEDS ORDERED: TRANEXAMIC 1,000 MG/100ML-NACL PREMIX BAG ONE (11:54)
[2023-10-24] MEDS ORDERED: MIDAZOLAM 2 MG/2 ML VIAL ONE (11:54)
[2023-10-24] MEDS ORDERED: GLYCOPYRROLATE 0.2 MG/ML 2 ML VIAL ONE (11:54)
[2023-10-24] MEDS ORDERED: PROPOFOL 10 MG/ML 20 ML VIAL IV ONE (11:54)
[2023-10-24] MEDS ORDERED: PHENYLEPHRINE 10 MG/ML VIAL ONE (11:54)
[2023-10-24] MEDS ORDERED: SUCCINYLCHOLINE CHLORIDE 200 MG/10 ML VIAL IV ONE (11:54)
[2023-10-24] MEDS ORDERED: LIDOCAINE 1% INJ 10MG/ML (20 ML MDV) ONE (11:54)
[2023-10-24] MEDS ORDERED: fentaNYL (PF) 50 MCG/ML 2 ML AMP ONE (11:54)
[2023-10-24] MEDS ORDERED: KETAMINE HCL IN 0.9 % NACL 50 MG/5 ML SYRINGE ONE (11:54)
[2023-10-24] MEDS ORDERED: KETOROLAC 15 MG/ML 1 ML VIAL ONE (11:54)
[2023-10-24] MEDS ORDERED: NEOSTIGMINE 1 MG/ML 10 ML VIAL ONE (11:54)
[2023-10-24] MEDS ORDERED: ROCURONIUM 10 MG/ML (5 ML VIAL) IV ONE (11:54)
[2023-10-24] MEDS ORDERED: MAGNESIUM HYDROXIDE 2,400 MG/30 ML CUP PO PRN (12:31)
[2023-10-24] MEDS ORDERED: HYDROmorphone 1 MG/ML 1 ML SYRINGE IVP PRN (12:31)
[2023-10-24] MEDS ORDERED: HYDROcodone/APAP 5-325MG 1 EACH TAB PO PRN (12:31)
[2023-10-24] MEDS ORDERED: HYDROcodone/APAP 10-325MG 1 EACH TAB PO PRN (12:31)
[2023-10-24] MEDS ORDERED: SENNOSIDES-DOCUSATE SODIUM 1 EACH TAB PO PRN (12:31)
[2023-10-24] MEDS: THROMBIN (BOVINE) 5,000 UNIT VIAL TOPICAL ONE (12:45)
[2023-10-24] MEDS: LIDOCAINE 2%-EPI 1:100,000 20 ML VIAL SQ ONE (12:47)
[2023-10-24] MEDS: BUPIVACAINE (PF) 0.5% 30 ML VIAL SQ ONE (12:47)
[2023-10-24] MEDS: LACTATED RINGERS 1,000 ML IV ONE (12:58)
--- NOTE | 2023-10-24 14:38 | P.OP ---
Date of Procedure: 10/24/23 Preoperative Diagnosis: Current Active Problems Spondylolisthesis, lumbar region (Acute) Lumbar stenosis with neurogenic claudication (Acute) Muscle weakness of lower extremity (Acute) Radicular pain of lower extremity (Acute) Low back pain (Acute) Postoperative Diagnosis: Current Active Problems Spondylolisthesis, lumbar region (Acute) Lumbar stenosis with neurogenic claudication (Acute) Muscle weakness of lower extremity (Acute) Radicular pain of lower extremity (Acute) Low back pain (Acute) Procedure(s) Performed: -L4-5 POSTEROLATERAL AND INTERBODY FUSION -L4-5 INSTRUMENTATION -L4-5 LAMINECTOMY, FACETECTOMY AND FORAMINOTOMY FOR NEURAL DECOMPRESSION AND CAGE PLACEMENT -INSERTION OF BIOMECHANICAL DEVICE L4-5 CAGE -USE OF [employer] NAVIGATION FOR SCREW PLACEMENT USE OF IONM ALL SCREWS TESTING >19mA USE OF IO MICROSCOPE Implants: -MINO EVEREST RODS AND SCREWS -GLOBUS SABLE CAGE 8 DEG, MED, [id number] -MAGNATOS, ARTHROCELL, ALLOCELL, CONTOUR, AUTOGRAFT Anesthesia: GETA Surgeon: Santi Perez Scuba Instructor #1: Meng Rico (WAS PRESENT AND ASSISTED WITH ALL ASPECTS OF THE CASE FROM POSITION TO DRESSING PLACEMENT) Estimated Blood Loss (ml): 150 IV fluids (ml): 1,700 Urine output (ml): 50 Pathology: none sent Condition: stable Disposition: PACU Indications for Procedure: Ms. Au is presenting for evaluation of low back and bilateral lower extremity pain, bilateral lower extremity numbness, tingling, and weakness. It was my pleasure to have seen and examined Ms. Au. In our visit today we have had a chance to go over subjective complaints, physical examination findings and treatments including the natural course history without intervention and various interventional options. The patients imaging demonstrates: No new imaging today. Previous imaging reviewed with pt including XR, MRI and CT scans. These show multilevel spondylosis, severe, with Grade I and II spondylolisthesis from L3-S1. Worst level is L4-5 with Grade II unstable spondylolisthesis, unstable. Pars elongation, b/l foraminal stenosis that is severe as well as central stenosis that is severe. Boggy facets with severe facet arthropathy, disc degeneration and collapsed as well. No fractures noted. no lesions noted. On physical exam, Ms. Au demonstrates: A continued ache-like pain across the low back that radiates down into the bilateral lower extremities, right worse than left. The patient states her lower extremity pain is associated with numbness and tingling bilaterally. She states her current symptoms worsen after all activity. She notes progressive bilateral lower extremity weakness. The patient notes her right leg is much more weak then the left at this time. She reports experiencing severe sleep disturbances related to her ongoing pain and associated symptoms. I have explained to the patient that as their condition progresses it will cause further neurological deficits and eventual paralysis. Based on the patients imaging, physical exam, and the rapid progression and disabling nature of their symptoms, at this time I recommend surgery in the form of a: Right-sided L4-5 MIS TLIF. I discussed the risk and benefits of this procedure at length with Ms. Au. The patient agreed to considered pursuing the procedure abovementioned. Prior to surgery, she should follow up with her PCP (Cardio, ID, IM etc) for clearance. Questions were invited and answered, and the patient wishes to proceed as outlined below. Currently, I am recommendin.RIGHT L4-5 MINIMALLY INVASIVE POSTEROLATERAL AND INTERBODY FUSION Description of Procedure: L4-L5 MIS PLIBF SUSANA The patient was seen and examined in the preoperative area. All preoperative protocols were followed. Informed consent was obtained, risks and benefits of the procedure were discussed at length. Risks including bleeding infection damage to the surrounding tissue and risk of reoperation were discussed with the patient. Risk of anesthesia up to and including was discussed with the patient. These are outlined in the risk review. They were willing to accept these risks and all the risks of surgery. The patient was given a weight-based dose of antibiotics in the form of 2 g Ancef. The patient was seen and evaluated by the anesthesia team who deemed them fit for surgery. The site was marked, the patient was willing to proceed with the procedure. The patient was transferred to the operative suite by the Department of anesthesia. They were then drifted off to sleep by the department anesthesia and GETA was performed. The patient tolerated this well. Monique catheter was placed by nursing staff, a-traumatically. Once confirmation of lines and ventilation the patient was transferred to a prone Julius table very carefully. All bony prominences including wrists, elbows, axilla, chest, hips, and thighs, and feet were padded very well. Special attention was paid to the genitalia, and these were padded accordingly. SCDs were placed on bilateral lower extremities and were connected. Arms were well padded and placed on arm boards up and out in the 90/90 position. Once in position, again we confirmed good ventilation capabilities and that lines were running appropriately. The patients Lumbar spine was then exposed. 1010s were placed outlining the incision site. Standard alcohol was used to clean the incision site and allowed to dry. C-arm was used to needle localize the pedicles at L4-5 and bio-linda the patient and confirm level for incision which was marked with a skin marker. Operative briefing was performed with all teams and everyone in agreement to proceed. The patient was then prepped and draped in a normal sterile fashion. Timeout was then performed, and all parties agreed with the procedure to be performed. Skin nicks made and pins placed in the PSIS on the right for the vLex tracker. 3D Zheim spin was then registered and confirmed to be accurate. Shawn gated jamshidi and drill-guide were then used to target pedicles bilaterally at L4 and L5. Once accessed, wires were placed in their void. This was repeated at L5 bilaterally. Skin incision was then made along these wires and a perfect scalpel was used over the wire to create a path and measure screw length. Screws were then placed over wires on the contralateral side. Once the screw was at the back of the body wire was removed. The screws were confirmed to be in good position on AP and lateral. We then tested screws and they all tested above 19 mA. Attention was then turned to interbody fusion at L4-5. Tubular retractor system was placed at the interspace of L4-5 using a biplanar c arm. Once in position and dilated up to 26mm tube it was locked to the bed and confirmed in good position. Microscope was then brought in for visualization. Limited myomectomy was performed and laminectomy, complete facetectomy and foraminotomy performed at L4-5 using high speed suleman and Kerrison rongeur. The ligamentum was removed and the dural sac decompressed. Exiting and traversing roots visualized and decompressed. Neural elements were then protected, and disc space accessed with an osteotome. Sequential shaving then done under lateral imaging and complete discectomy performed using jhonny, pituitary and curettes. Once good bleeding endplates accomplished and good height jehovah's witness with trials, a combination of autograft, allograft and synthetic placed anterior in the disc space. The cage was then selected and impacted into place under lateral imaging. The cage was t hen expanded restoring height, lordosis and alignment. The cage was backfilled with bone graft through a funnel. The leather softener was removed and the area inspected. Good cage placement, stable cage and no injuries. Area was irrigated copiously, and meticulous hemostasis achieved. The tubular retractor was then removed under direct visualization. Screws were then selected and placed over the previously placed wires on the ipsilateral side. This was done in the fashion described above. Screws were then tested, and all tested above 20 mA. Shells were then placed on the tabs. Collin length was then measured, and rods selected. They were then placed through the MIS tabs, subfascial and locked into L5 bilateral and sequentially reduced into L4 for listhesis reduction. These were then locked into place with set screws and finally tightened. Collin holders removed and images taken showing good placement of rods, good lordosis and jehovah's witness of height. Tabs were broken off. Wounds were then copiously irrigated with NSS. Jarratt used for TP decortication and mixture of MagnatOs, allograft and autograft packed posterolateral. Fascia was then closed with 0 Vircyl on a Scorpion suture passer for MIS closure. Deep subq closed with 0 Vicryl. Superficial subq closed with 2-0 Vicryl and skin with erum. Wound edges approximated very well. Wound was then cleaned with alcohol and dried. Wounds dressed with adaptic, 4x4, abd and Medipore tape. The patient was then transferred off the table back to their hospital bed a- traumatically. They were extubated by the department of anesthesia. They were then transferred to PACU in stable condition having tolerated the procedure with no complications.
[2023-10-24] MEDS: HYDROmorphone 0.5 MG/0.5 ML SYRINGE IVP PRN ×2 (15:14→22:44)
--- NOTE | 2023-10-24 15:41 | FL ---
EXAMINATION TYPE: FL guidance operating room, XR lumbar spine 2 or 3V Intraoperative/procedural fluor oscopic services were provided. Total fluoroscopy time is 51 seconds with a total of 4 submitted imag es to PACS. Please see the operative/procedural note for further details. DAP: 692.7 cGycm2
[2023-10-24] MEDS: ONDANSETRON 4 MG/2 ML VIAL IVP PRN (20:20)
[2023-10-24] MEDS: SODIUM CHLORIDE 0.9% 1,000 ML IV SCH (20:23)
[2023-10-24] MEDS: ACETAMINOPHEN TAB 325 MG TAB PO SCH (22:36)
[2023-10-24] MEDS: GABAPENTIN 300 MG CAP PO SCH (22:36)
[2023-10-25] MEDS: CYCLOBENZAPRINE 5 MG TAB PO PRN (06:19)
[2023-10-25 08:45] LABS: Basophils # (A) 0.03 X 10*3/uL (0.00-0.10); Basophils % (A) 0.3 %; Eosinophils # (A) 0.02 X 10*3/uL (0.04-0.35); Eosinophils % (A) 0.2 %; HCT 34.5 % (37.2-46.3); Lymphocytes % (A) 7.8 %; MCH 30.1 pg (27.0-32.0); MCHC 31.9 g/dL (32.0-37.0); MCV 94.5 FL (80.0-97.0); Mean Platelet Volume 10.2 FL (9.5-12.2); Monocytes # (A) 1.01 X 10*3/uL (0.20-1.00); Monocytes % (A) 8.8 %; NRBC Per 100 WBC 0 X 10*3/uL (0.00-0.01); Neutrophils # (A) 9.49 X 10*3/uL (1.80-7.70); Neutrophils % (A) 82.4 %; Platelet Count 234 X 10*3/uL (140-440); RBC 3.65 X 10*6/uL (4.10-5.20); RDW 12.9 % (11.5-14.5); WBC 11.51 X 10*3/uL (4.50-10.00)
[2023-10-25] MEDS: SENNOSIDES-DOCUSATE SODIUM 1 EACH TAB PO SCH (09:19)
--- NOTE | 2023-10-25 09:53 | CT ---
EXAMINATION TYPE: CT lumbar spine wo con DATE OF EXAM: 10/25/2023 9:41 AM COMPARISON: Preoperative study 08/26/2023 HISTORY: lumbar fusion CT DLP: 888.5 mGycm Automated exposure control for dose reduction was used. Unenhanced CT of the lumbar spine was performed. Bone and soft tissue window settings are submitted as well as coronal and sagittal reconstructions. L1-L2: Normal disc space height. No disc herniation protrusion or central stenosis. No facet joint arthropathy. No evidence for foraminal encroachment. L2-L3: Normal disc space height. No disc herniation protrusion or central stenosis. No facet joint arthropathy. No evidence for foraminal encroachment. L3-L4: Grade 1 anterolisthesis L3 on L4 unchanged from prior study. Mild degenerative disc space narr owing and minimal posterior disc bulge without definite central stenosis although streak artifact gomez its evaluation. L4-L5: Interval changes of decompressive laminectomy with pedicular screw placement and intervertebra l spacer noted at L4-5. Postoperative alignment is within normal limits. Streak artifact limits evalu ation at this level. L5-S1: Grade 1 anterolisthesis L5 on S1 unchanged from prior study. Mild degenerative disc space narr owing with minimal posterior disc bulge. No evidence for central stenosis. IMPRESSION: Postoperative alignment as noted.
[2023-10-25] MEDS ORDERED: NON FORMULARY DRUG (Fluocinolone Acetonide Oil [Fluocinolone Acetonide Oil 0.01% (Otic)] 2 OTIC PRN (10:39)
--- NOTE | 2023-10-25 10:43 | P.CONS ---
History of Present Illness - Reason for Consult Consult date: 10/25/23 Medical management - History of Present Illness this is an 83-year-old female patient of Dr. Izaguirre who presented for an elec tiveL4 to L5 laminectomy and fusion with on 10/24/2023 patient has long-standing history of chronic low back pain with radicular pain of lower extremity. Additional medical history includes CVA approximately 1 year ago in which patient was started on aspirin and Plavix, hyperlipidemia, ICA stenosis in which she follows with vascular surgery, GERD and hypertension. At this time patient is resting comfortably in bed. Patient reports some discomfort with back pain. Patient also reports occasional nausea and vomiting with pain medication.. Patient remains on IV Zofran and pain medication per orthopedic services. Patient denies chest pain or shortness of breath. Patient denies nausea vomiting or diarrhea. Patient denies any urinary burning or frequency. Current vital signs temp 97.4, heart rate 89, respiratory rate 18, blood pressure 109/65 with pulse ox of 95% on 3 L Review of Systems please refer to HPI otherwise unremarkable Past Medical History Past Medical History: Cancer, CVA/TIA, GERD/Reflux, Hyperlipidemia, Hypertension Additional Past Medical History / Comment(s): VERTIGO. CVA SEVERAL YEARS AGO. osteoporosis. SKIN CANCER. History of Any Multi-Drug Resistant Organisms: None Reported Past Surgical History: Appendectomy, Ear Surgery Additional Past Surgical History / Comment(s): Colonoscopy . Laparoscopy and D&Cs in the past.parathyroid Past Anesthesia/Blood Transfusion Reactions: No Reported Reaction, Motion Sickness Past Psychological History: No Psychological Hx Reported Smoking Status: Never smoker Past Alcohol Use History: Occasional Past Drug Use History: None Reported - Past Family History Father Family Medical History: Cancer Additional Family Medical History / Comment(s): Prostate cancer. Mother Family Medical History: Hyperlipidemia Medications and Allergies Home Medications Medication Instructions Recorded Confirmed Type Simvastatin 80 mg PO HS 07/19/17 10/24/23 History fluocinolone acetonide oiL 5 drop BOTH EARS BID PRN 07/19/17 10/24/23 History [fluocinolone acetonide oiL 0.01% (Otic)] Aspirin 81 mg PO DAILY 30 Days #30 cap 07/01/21 10/24/23 Rx Clopidogrel [Plavix] 75 mg PO DAILY 21 Days #21 tab 07/01/21 10/24/23 Rx amLODIPine [Norvasc] 10 mg PO QAM 02/03/22 10/24/23 History Lansoprazole [Prevacid] 15 mg PO Q48H 02/04/22 10/24/23 History Cranberry Fruit Extract [Cranberry] 1 cap PO DAILY 10/21/23 10/24/23 History Cyanocobalamin (Vitamin B-12) 1 tab PO DAILY 10/21/23 10/24/23 History [Vitamin B-12] Ibuprofen [Advil] 200 - 400 mg PO Q6H PRN 10/21/23 10/24/23 History Allergies Allergy/AdvReac Type Severity Reaction Status Date / Time No Known Allergies Allergy Verified 10/24/23 11:41 Physical Exam Vitals: Vital Signs Temp Pulse Resp BP Pulse Ox 10/25/23 06:49 97.4 F L 89 18 109/65 95 10/25/23 02:00 97.6 F 87 18 109/71 92 L 10/24/23 20:11 62 128/78 10/24/23 20:00 97.8 F 90 18 134/68 92 L 10/24/23 18:30 79 16 106/71 98 10/24/23 18:00 81 16 104/72 97 10/24/23 17:30 78 16 98/48 94 L 10/24/23 16:50 73 16 90/53 96 10/24/23 16:24 66 16 92/56 99 10/24/23 16:09 75 16 90/49 98 10/24/23 15:54 73 18 91/54 98 10/24/23 15:39 68 18 94/56 99 10/24/23 15:26 66 16 92/53 99 10/24/23 15:11 73 16 91/51 100 10/24/23 14:56 97 F L 77 16 102/58 100 10/24/23 11:22 98 F 108 H 16 149/72 98 Intake and Output 10/24/23 10/25/23 10/25/23 22:59 06:59 14:59 Intake Total 1000 0 Output Total 200 325 Balance 800 -325 0 Intake: IV 1000 Oral 0 Output: Urine 200 325 Other: Voiding Method Toilet Weight 63.6 kg Head normocephalic Neck supple Lungs clear to auscultation bilaterally no wheezing or crackles Heart regular rate and rhythm S1-S2, no rub or gallop Abdomen is soft nontender nondistended positive bowel sounds no hepatosplenomegaly Extremities no edema Neuro alert and orientated to 3 Results CBC & Chem 7: 10/25/23 05:09 Labs: Abnormal Lab Results - Last 24 Hours (Table) 10/25/23 Range/Units 05:09 WBC 11.51 H (4.50-10.00) X 10*3/uL RBC 3.65 L (4.10-5.20) X 10*6/uL Hgb 11.0 L (12.0-15.0) g/dL Hct 34.5 L (37.2-46.3) % MCHC 31.9 L (32.0-37.0) g/dL Immature Gran # 0.06 H (0.00-0.04) X 10*3/uL Neutrophils # 9.49 H (1.80-7.70) X 10*3/uL Monocytes # 1.01 H (0.20-1.00) X 10*3/uL Eosinophils # 0.02 L (0.04-0.35) X 10*3/uL Assessment and Plan Assessment: 1. Status post L4 to L5 laminectomy and fusion with Dr. Perez on 10/24/2023 2. history of CVA maintained on Plavix and aspirin currently on hold postoperative 3. History of ICA stenosis patient follows with vascular surgery 4. History of essential hypertension 5. History of GERD DVT prophylaxis SCDs Thank you for this consultation we will continue to follow patient closely throughout stay Repeat labs ordered Time with Patient: Greater than 30 (Greater than 60% of the total time spent in counseling and coordination of care)
[2023-10-25 11:05] LABS: Glucose,Whole Blood 144 mg/dL (70-110)
--- NOTE | 2023-10-25 12:54 | P.PN ---
Subjective Progress Note Date: 10/25/23 Principal diagnosis: Status post MIS TLIF at L4-L5 patient evaluated at bedside, she is resting comfortably having lunch. She did well with physical therapy with ambulation. Urinary catheter remains in place at this time. She denies headaches, lightheadedness, chest pain or shortness of breath. She feels that her pain is managed well at this time, she notes a significant improvement in the lower extremity symptoms. Objective - Vital Signs Vital signs: Vital Signs Temp 97.4 F L 10/25/23 06:49 Pulse 89 10/25/23 06:49 Resp 18 10/25/23 06:49 BP 109/65 10/25/23 06:49 Pulse Ox 95 10/25/23 06:49 FiO2 Intake & Output 10/24/23 10/25/23 10/25/23 18:59 06:59 18:59 Intake Total 2850 0 Output Total 400 325 Balance 2450 -325 0 Weight 63.6 kg 63.6 kg Intake: IV 2850 Oral 0 Output: Urine 250 325 Estimated Blood Loss 150 Other: Voiding Method Toilet Indwelling Catheter - Exam Gen: AOx3, NAD VSS stable at this time Integument: Postop dressing in good position and condition Palpation: mild tenderness with palpation noted to the lumbar spine ROM: full range of motion in all major muscle groups of the lower extremities, no focal deficits Sensory Exam: Senosry exam to light touch is intact L2-S1 Motor: 4+/5 strength appreciated in the bilateral lower extremities with hip flexion, knee extension, knee flexion, plantarflexion, dorsiflexion, EHL, FHL Reflexes: 2/4 in all UE and LE negative clonus bilaterally Special Test: negative straight leg raise bilaterally - Labs CBC & Chem 7: 10/25/23 05:09 Labs: Abnormal Lab Results - Last 24 Hours (Table) 10/25/23 10/25/23 Range/Units 05:09 11:02 WBC 11.51 H (4.50-10.00) X 10*3/uL RBC 3.65 L (4.10-5.20) X 10*6/uL Hgb 11.0 L (12.0-15.0) g/dL Hct 34.5 L (37.2-46.3) % MCHC 31.9 L (32.0-37.0) g/dL Immature Gran # 0.06 H (0.00-0.04) X 10*3/uL Neutrophils # 9.49 H (1.80-7.70) X 10*3/uL Monocytes # 1.01 H (0.20-1.00) X 10*3/uL Eosinophils # 0.02 L (0.04-0.35) X 10*3/uL POC Glucose (mg/dL) 144 H (70-110) mg/dL Assessment and Plan Assessment: postoperative day #1 status post MIS TLIF L4-L5 Plan: pain control, patient is utilize the gabapentin and Flexeril, continue this at this time. She can also utilize Tylenol. [place] is available for breakthrough pain DVT prophylaxis, mechanical at this time to include CHER hose and compression stockings, will restart Plavix 75 mg daily on 10/26/2023 wound care, dressing change on 10/26/2023 continue work with PT/OT, weight-bear as tolerated with walker await delivery of LSO brace, okay to utilize basic ambulation without brace, recommending use of brace for longer distances encourage incentive spirometer DC urinary catheter medical recommendations appreciated discharge planning: Planning for discharge home with home health care on 10/26/2023 Time with Patient: Less than 30
[2023-10-25 16:47] LABS: Glucose,Whole Blood 111 mg/dL (70-110)
[2023-10-25] MEDS: HYDROcodone/APAP 5-325MG 1 EACH TAB PO PRN (18:14)
[2023-10-25 20:48] LABS: Glucose,Whole Blood 117 mg/dL (70-110)
[2023-10-25] MEDS: ATORVASTATIN 40 MG TAB PO SCH (22:30)
[2023-10-26 06:02] LABS: Glucose,Whole Blood 104 mg/dL (70-110)
[2023-10-26] MEDS: amLODIPine 10 MG TAB PO SCH (09:11)
[2023-10-26] MEDS: CYANOCOBALAMIN 500 MCG TAB PO SCH (09:13)
[2023-10-26] MEDS: CLOPIDOGREL 75 MG TAB PO SCH (09:13)
[2023-10-26 10:44] LABS: Basophils # (A) 0.03 X 10*3/uL (0.00-0.10); Basophils % (A) 0.3 %; Eosinophils # (A) 0.11 X 10*3/uL (0.04-0.35); HCT 32.6 % (37.2-46.3); HGB 10.5 g/dL (12.0-15.0); Lymphocytes # (A) 1.52 X 10*3/uL (0.90-5.00); Lymphocytes % (A) 13.3 %; MCH 30.3 pg (27.0-32.0); MCHC 32.2 g/dL (32.0-37.0); MCV 94.2 FL (80.0-97.0); Mean Platelet Volume 10.5 FL (9.5-12.2); Monocytes # (A) 1.29 X 10*3/uL (0.20-1.00); Monocytes % (A) 11.3 %; NRBC Per 100 WBC 0 X 10*3/uL (0.00-0.01); Neutrophils # (A) 8.43 X 10*3/uL (1.80-7.70); Neutrophils % (A) 73.7 %; Platelet Count 202 X 10*3/uL (140-440); RBC 3.46 X 10*6/uL (4.10-5.20); WBC 11.42 X 10*3/uL (4.50-10.00)
[2023-10-26 10:52] LABS: ALT 13 U/L (8-44); AST 24 U/L (13-35); Albumin 3.2 g/dL (3.8-4.9); Albumin/Globulin Ratio 1.78 Ratio (1.60-3.17); Alkaline Phosphatase 32 U/L (41-126); Blood Urea Nitrogen 10.8 mg/dL (9.0-27.0); Calcium 8.2 mg/dL (8.7-10.3); Chloride 106 mmol/L (96-109); Globulin 1.8 g/dL (1.6-3.3); Glucose 100 mg/dL (70-110); Potassium 3.8 mmol/L (3.5-5.5); Sodium 140 mmol/L (135-145); Total Bilirubin 0.5 mg/dL (0.3-1.2)
--- NOTE | 2023-10-26 10:59 | P.PN ---
Subjective Progress Note Date: 10/26/23 this is an 83-year-old female patient of Dr. Izaguirre who presented for an electiveL4 to L5 laminectomy and fusion with on 10/24/2023 patient has long-standing history of chronic low back pain with radicular pain of lower extremity. Additional medical history includes CVA approximately 1 year ago in which patient was started on aspirin and Plavix, hyperlipidemia, ICA stenosis in which she follows with vascular surgery, GERD and hypertension. At this time patient is resting comfortably in bed. Patient reports some discomfort with back pain. Patient also reports occasional nausea and vomiting with pain medication.. Patient remains on IV Zofran and pain medication per orthopedic services. Patient denies chest pain or shortness of breath. Patient denies nausea vomiting or diarrhea. Patient denies any urinary burning or frequency. Current vital signs temp 97.4, heart rate 89, respiratory rate 18, blood pressure 109/65 with pulse ox of 95% on 3 L on 10/26/2023 for patient's alert and oriented 3 currently sitting up in chair. Patient reports improvement with pain and nausea and vomiting. Anticipate possible discharge home today or tomorrow. Awaiting brace per orthopedic services.white blood cell noted to be slightly elevated 11.42 patient denies any acute complaints denies nausea vomiting or diarrhea. Denies any chest pain or cough. Will order UA to rule out UTI prior to discharge. current vital signs temp 98.3, heart rate 71. 17, blood pressure 94/51 with pulse ox 90% on room air Objective - Vital Signs Vital signs: Vital Signs Temp 98.3 F 10/26/23 07:20 Pulse 71 10/26/23 07:20 Resp 17 10/26/23 07:20 BP 94/51 10/26/23 08:00 Pulse Ox 98 10/26/23 07:20 FiO2 Intake & Output 10/25/23 10/26/23 10/26/23 18:59 06:59 18:59 Intake Total 80 Output Total 575 Balance -495 Intake: Oral 80 Output: Urine 575 Other: Voiding Method Indwelling Catheter Toilet # Voids 1 2 - Exam Head normocephalic Neck supple Lungs clear to auscultation bilaterally no wheezing or crackles Heart regular rate and rhythm S1-S2, no rub or gallop Abdomen is soft nontender nondistended positive bowel sounds no hepatosplenomegaly Extremities no edema Neuro alert and orientated to 3 - Labs CBC & Chem 7: 10/26/23 06:34 10/26/23 06:34 Labs: Abnormal Lab Results - Last 24 Hours (Table) 10/25/23 10/25/23 10/25/23 Range/Units 11:02 16:41 20:47 WBC (4.50-10.00) X 10*3/uL RBC (4.10-5.20) X 10*6/uL Hgb (12.0-15.0) g/dL Hct (37.2-46.3) % Neutrophils # (1.80-7.70) X 10*3/uL Monocytes # (0.20-1.00) X 10*3/uL Est GFR (CKD-EPI) (>=60) BUN/Creatinine Ratio (12.00-20.00) Ratio POC Glucose (mg/dL) 144 H 111 H 117 H (70-110) mg/dL Calcium (8.7-10.3) mg/dL Alkaline Phosphatase (41-126) U/L Total Protein (6.2-8.2) g/dL Albumin (3.8-4.9) g/dL 10/26/23 10/26/23 Range/Units 06:34 06:34 WBC 11.42 H (4.50-10.00) X 10*3/uL RBC 3.46 L (4.10-5.20) X 10*6/uL Hgb 10.5 L (12.0-15.0) g/dL Hct 32.6 L (37.2-46.3) % Neutrophils # 8.43 H (1.80-7.70) X 10*3/uL Monocytes # 1.29 H (0.20-1.00) X 10*3/uL Est GFR (CKD-EPI) 57 L (>=60) BUN/Creatinine Ratio 10.80 L (12.00-20.00) Ratio POC Glucose (mg/dL) (70-110) mg/dL Calcium 8.2 L (8.7-10.3) mg/dL Alkaline Phosphatase 32 L (41-126) U/L Total Protein 5.0 L (6.2-8.2) g/dL Albumin 3.2 L (3.8-4.9) g/dL Assessment and Plan Assessment: 1. Status post L4 to L5 laminectomy and fusion with Dr. Perez on 10/24/2023 2. history of CVA maintained on Plavix and aspirin currently on hold postoperative 3. History of ICA stenosis patient follows with vascular surgery 4. History of essential hypertension 5. History of GERD 6. Leukocytosis UA ordered DVT prophylaxis SCDs Thank you for this consultation we will continue to follow patient closely throughout stay Repeat labs ordered
--- NOTE | 2023-10-26 12:59 | P.PN ---
Subjective Progress Note Date: 10/26/23 Principal diagnosis: Status post MIS TLIF at L4-L5 patient evaluated at bedside, she is resting comfortably in her hospital chair. Patient's is present at bedside. She notices improvement in her overall lower back discomfort today. She denies headaches, lightheadedness, chest pain or shortness of breath. Patient did take a [place] today which made her quite dizzy she states. Internal medicine did check a urine due to her white blood cell count, this is likely reactive from surgery. Awaiting delivery of her LSO brace. Objective - Vital Signs Vital signs: Vital Signs Temp 98.3 F 10/26/23 07:20 Pulse 71 10/26/23 07:20 Resp 17 10/26/23 07:20 BP 94/51 10/26/23 08:00 Pulse Ox 98 10/26/23 07:20 FiO2 Intake & Output 10/25/23 10/26/23 10/26/23 18:59 06:59 18:59 Intake Total 80 Output Total 575 Balance -495 Intake: Oral 80 Output: Urine 575 Other: Voiding Method Indwelling Catheter Toilet # Voids 1 2 - Exam Gen: AOx3, NAD VSS stable at this time Integument: Postop dressing was removed today at bedside, erum are all in good position condition, no active drainage. New bandages were applied Palpation: mild tenderness with palpation noted to the lumbar spine ROM: full range of motion in all major muscle groups of the lower extremities, no focal deficits Sensory Exam: Senosry exam to light touch is intact L2-S1 Motor: 4+/5 strength appreciated in the bilateral lower extremities with hip flexion, knee extension, knee flexion, plantarflexion, dorsiflexion, EHL, FHL Reflexes: 2/4 in all UE and LE negative clonus bilaterally Special Test: negative straight leg raise bilaterally - Labs CBC & Chem 7: 10/26/23 06:34 10/26/23 06:34 Labs: Abnormal Lab Results - Last 24 Hours (Table) 10/25/23 10/25/23 10/26/23 Range/Units 16:41 20:47 06:34 WBC 11.42 H (4.50-10.00) X 10*3/uL RBC 3.46 L (4.10-5.20) X 10*6/uL Hgb 10.5 L (12.0-15.0) g/dL Hct 32.6 L (37.2-46.3) % Neutrophils # 8.43 H (1.80-7.70) X 10*3/uL Monocytes # 1.29 H (0.20-1.00) X 10*3/uL Est GFR (CKD-EPI) (>=60) BUN/Creatinine Ratio (12.00-20.00) Ratio POC Glucose (mg/dL) 111 H 117 H (70-110) mg/dL Calcium (8.7-10.3) mg/dL Alkaline Phosphatase (41-126) U/L Total Protein (6.2-8.2) g/dL Albumin (3.8-4.9) g/dL 10/26/23 Range/Units 06:34 WBC (4.50-10.00) X 10*3/uL RBC (4.10-5.20) X 10*6/uL Hgb (12.0-15.0) g/dL Hct (37.2-46.3) % Neutrophils # (1.80-7.70) X 10*3/uL Monocytes # (0.20-1.00) X 10*3/uL Est GFR (CKD-EPI) 57 L (>=60) BUN/Creatinine Ratio 10.80 L (12.00-20.00) Ratio POC Glucose (mg/dL) (70-110) mg/dL Calcium 8.2 L (8.7-10.3) mg/dL Alkaline Phosphatase 32 L (41-126) U/L Total Protein 5.0 L (6.2-8.2) g/dL Albumin 3.2 L (3.8-4.9) g/dL Assessment and Plan Assessment: postoperative day #2 status post MIS TLIF L4-L5 Plan: pain control, plan for discharge with tramadol 50 mg, will also utilize gabapentin DVT prophylaxis, did receive Plavix today wound care was discussed, this to include showering instructions and use of basic bandages continue work with PT/OT, weight-bear as tolerated with walker await delivery of LSO brace, okay to utilize basic ambulation without brace, recommending use of brace for longer distances encourage incentive spirometer medical recommendations appreciated discharge planning: stable for discharge home today Time with Patient: Less than 30
--- NOTE | 2023-10-26 13:06 | P.DS ---
Providers Date of admission: 10/24/2023 Expected date of discharge: 10/26/23 Attending physician: Santi Perez DO Consults: 10/24/23 12:31 Consult Physician Routine Consulting Provider: Lida Duron Consult Reason/Comments: medical management s/p L4-L5 MIS PLIF Do you want consulting provider notified?: Yes Primary care physician: Narinder Mayer Hospital Course: date of admission: 10/24/2023 Date of discharge: 10/26/2023 Admission diagnosis: status post MIS TLIF at L4-L5 Discharge diagnosis: same Attending physician: Dr. Perez Surgical procedures: MIS TLIF at L4-L5 Brief history: Patient is a 83-year-old female with a history of chronic low back pain, bilateral lower extremity weakness and radiculopathy with known multilevel degenerative disc disease and stenosis and grade 1 spondylolisthesis noted at L3-L4, L4-L5, L5-S1.. At this point patient has failed conservative treatment measures and has opted to proceed with a elective minimally invasive TLIF at L4-L5. Hospital course: Details of patient's surgery can be found in operative report. Patient tolerated the procedure well and was subsequently transported to orthopedic floor. Patient's orthopeidc and medical care was provided daily. Patient had daily laboratory tests performed for evaluation of overall blood counts. Patient had daily physical therapy to include strengthening range of motion as well as education with walker ambulation. Patient was treated with CHER hose, compression stockings, Plavix 75 mg for their postoperative DVT prophylaxis during their inpatient stay. Patient was noted to have a relatively uneventful postoperative course. Patient reported satisfactory pain control with oral pain medications by postoperative day 1. Patient showed satisfactory progress with physical therapy. Patient moved steadily through the program and had no difficulty meeting the goals by postoperative day 2. Given patient's otherwise satisfactory course and having met physical therapy goals, plan is to discharge patient home on postoperative day 2. Discharge condition/disposition: Patient will be discharged home in stable condition. Discharge medications: Instructions are given on resumption of patient's normal daily medications per primary care recommendation, in addition patient will be prescribed tramadol 50 mg, gabapentin 200 mg, senna S, Duricef 500 mg. Spine Discharge and Recovery Instructions Medications: See medication list All medication refills should be obtained through your primary care doctor or your clinic spine surgeon. Please discuss prescription refills at your follow up appointment. Do not call the hospital for medication refills. Dressing: Leave your dressing in place for a total of 5 days post operatively. Then you may remove your dressing and leave open to air. Keep the area clean and if not able to keep area clean, then cover with sterile gauze and tape. Showering: You may shower 3 days after your procedure allowing soap and water to run over incision. Do not scrub. Do not soak. Blot dry. Follow up: Please confirm a follow up appointment with your surgeon 3 weeks post operatively. Please make an appointment to follow up with your PCP in 1-2 weeks after surgery for evaluation `3 phase, 3-week plan POST OP WEEKS 1-3 1. Lifting/carrying/pushing/pulling limited to less than 5 pounds. 2. Do not sit for longer than 15 minutes at one time. Get up and walk around. Prolonged sitting is NOT advised. If you lay down, see if you can tolerate laying down on you front (belly side) 3. Walk for periods of 15 minutes = 1 mile but no longer; do it multiple times times each day. 4. Ice your low back after activity. POST OP WEEKS 3-6 1. Lifting limited to less than 20 pounds. 2. Do not sit for longer than 30 minutes at a time. Frequently change positions. Use a sit-to stand workstation or take frequent breaks from sitting if you have returned to work. 3. Walk for 30 minutes each day. If possible, do these three or more times a day POST OP WEEKS 6+ At your 6-week appointment we will give you a physical therapy referral to focus on a core stabilization and strengthening program. You should also work on leg & buttock strengthening, hamstring & quadriceps stretching, and continue a low impact aerobic activity program such as swimming, walking, or riding a stationary bicycle. During the initial 6 weeks after your surgery, you are at the highest risk of re-injuring your spine. You should generally avoid BLTs (bending, lifting and twisting combination motions) and follow the above guidelines to reduce the chance of reinjury. You can anticipate post op appointments in our office at approximately 3 weeks and 6 weeks after your surgery. INCISION CARE: If your incision is not draining you do NOT need to cover it with a dressing. Keep your incision clean, dry and intact. In most cases, we apply skin glue, erum or sutures to the incision at the time of surgery. This will be like a crust or have the appearance of a scab and will fall off in time on its own. The stitches or erum need to be removed at 3 weeks post op appointment. You may begin to shower 3 days after surgery (this allows the glue to hahn well). However, please avoid scrubbing the incision site or peeling off any of the skin glue. This will ensure optimal healing of your incision. Also, during this time avoid soaking the incision area in water - this includes swimming pools, hot tubs or baths. No ointments, lotions or oils on the incision until your surgeon allows. Leave erum, sutures or glue in place. Neurological dysfunction that comes on suddenly can also be a sign of a stroke. Below some common symptoms of a stroke are listed: B - balance difficulty such as sudden onset walking or leaning to one side - NEW E - eye problem such as sudden double vision or trouble seeing on one side - NEW F - Facial weakness or numbness on one side - NEW A - Arm or leg weakness or numbness on one side - NEW S - Slurred speech or difficulty with word finding - NEW T - Time is BRAIN! Call 911 as soon as you recognize these symptoms Diet: Consume a regular diet rich in vegetables and lean protein such as chicken or fish. You should consume in a ratio of approximately 20% fats|40% carbohydrates|40%protein. Vegetables, sweet potatoes, brown rice or quinoa are examples of good carbohydrates. Chips, white bread, cookies and sweets/sugar are examples of bad carbohydrates. Limit your bad carbs, go wild with good carbs. "Life's Simple 7" Guidelines as per [place] [employer] These will help you reclaim your life after surgery and cork insulator helper in your recovery, keeping in mind your restrictions. (1) Get Active. Physical activity can help people lose weight, control high blood pressure and cholesterol, feel emotionally better, and sleep better. (2) Control Cholesterol. Avoid a diet high in saturated fat, trans fat, & cholesterol. Limit whole milk & cream, ice cream, butter, egg yolks, processed meats (like sausage and hot dogs), and fatty meats. Choose healthy foods that are low in saturated fat, trans fat and cholesterol which include: Fruits and vegetables, fiber rich grain products (like whole grain pasta and brown rice), lean meat such as chicken, fish, nuts, seeds, and legumes. (3) Eat Better. Eat small portions. Shop at the grocery with a list and do not stray from it. Tips for a healthy diet include: Limit sodium intake to less than 1500mg daily, avoid prepackaged, processed, and fast foods, choose a diet rich in fruits, vegetables, and whole grain, high fiber foods, and limit saturated & cholesterol in your diet. (4) Manage Blood Pressure. If you have high blood pressure, you should have a cuff at home so that you can check your blood pressure regularly. Be sure you have a good cuff. An arm one is generally better than a wrist one. Bring the cuff to a doctor's appointment to validate that the measurements that your cuff are taking are accurate. Take your blood pressure twice daily when you are sitting down and relaxing. Record the numbers in a log and bring this log with you to your doctors' appointments. (5) Lose Weight if your BMI is above 25. A healthy BMI is between 19-25. To calculate Your BMI, you may use a Standard BMI Calculator on the NIH BMI website: <www.nhlbi.nih.gov/guidelines/obesity/BMI/bmicalc.htm>. Weigh oneself daily. If you are overweight, set a goal to lose weight. A pound a week loss if needed is a good target. (6) Reduce Blood Sugar. Limit foods and liquids with "added sugars." (Added s ugars include sucrose, fructose, glucose, maltose, dextrose, high fructose corn syrup, corn syrup, concentrated fruit juice and honey). (7) Stop Smoking. If you smoke, quitting smoking is one of the best things that you can do for your health. Smoking increases your risk of heart attack, stroke, and peripheral vascular disease, which is a build-up of plaque in your arteries. Please discard all the cigarettes and lighters in your house. Have a plan for what you will do when you have the urge to smoke. Direct and second- hand smoke shortens your life as well as the lives of your family, friends and others around you. For your health and the health of those around you, please consider quitting! Proper Bending Body Mechanics: Maintain a wide stance with one foot slightly in front of the other. Keep your back straight. Bend utilizing the strength in your hips and knees. Do not bend at the waist. Maintain the lifted object at your waist-level close to your body. Avoid lifting weight that causes immediately pain or pain anywhere in the body afterwards. Smoking/Nicotine If there was ever one thing that you could do to increase your overall health, decrease your risk of cardiovascular problems by about 39% the second you make the choice, it is to STOP SMOKING. Your body's most instant gratification is the second you stop smoking. We have all heard the studies, read the articles but it is true, smoking is extremely bad for your overall health, and moreover it is detrimental to your bone health. Nicotine, IN ANY FORM, kills bone cells, prevents your body from healing fractures, and significantly prolongs healing after surgery. In spine surgery specifically, it increases your risk of not healing your bones to create a fusion and increases your risk of having a revision surgery due to this up to 60%. I know it is hard. I know it feels impossible. But there are ways. Take control of your life. We are here to help you through it. And when you are ready, ask us and we can direct you to help if you desire. Use the START Plan to Quit Smoking (please visit the Helpguide.org website listed below for more information): S = Set a quit date. Choose a date within the next 2 weeks, so you have enough time to prepare without losing your motivation to quit. If you mainly smoke at work, quit on the weekend, so you have a few days to adjust to the change. T = Tell family, friends, and co-workers that you plan to quit. Let your friends and family in on your plan to quit smoking and tell them you need their support and encouragement to stop. Look for a quit tad who wants to stop smoking as well. You can help each other get through the rough times. A = Anticipate and plan for the challenges you'll face while quitting. Most people who begin smoking again do so within the first 3 months. You can help yourself make it through by preparing ahead for common challenges, such as nicotine withdrawal and cigarette cravings. R = Remove cigarettes and other tobacco products from your home, car, and work. Throw away all your cigarettes (no emergency pack!), lighters, ashtrays, and matches. Wash your clothes and freshen up anything that smells like smoke. Shampoo your car, clean your drapes and carpet, and steam your furniture. T = Talk to your doctor about getting help to quit. Your doctor can prescribe medication to help with withdrawal and suggest other alternatives. If you can't see a doctor, you can get many products over the counter at your local pharmacy or grocery store, including the nicotine patch, nicotine lozenges, and nicotine gum. Resources for Quitting Smoking: <https://www.[place].gov/documents/[facility]/Quit_Tobacco _Resources_for_patients_313480_7.pdf> Supplementation: Take recommended dosages of Vitamin D and Calcium to help fortify your bones and help them to heal. See your health maintenance packet for dosages and recommended levels. DVT/VTE prophylaxis: You will be given compression stockings from the hospital. Wear these daily for the first two weeks after surgery. You may take them off at night. You may be prescribed a medication to help thin your blood. Take this as directed. If you are not prescribed this medication, early and frequent ambulation has been shown to be the best prophylaxis to deep vein thrombosis and sequelae related to this event. Procedures: MIS TLIF L4-L5 Patient Condition at Discharge: Good Plan - Discharge Summary Discharge Rx Participant: No New Discharge Prescriptions: New Sennosides/Docusate Sodium [Senna-S 8.6-50 mg Tablet] 2 each PO DAILY PRN #30 tablet PRN Reason: Constipation traMADol HCl [Ultram] 50 mg PO Q6H PRN #28 tab PRN Reason: Pain cefaDROXiL [Duricef] 500 mg PO Q12HR 5 Days #10 cap Gabapentin [Neurontin] 200 mg PO BID 10 Days #40 cap No Action Simvastatin 80 mg PO HS fluocinolone acetonide oiL [fluocinolone acetonide oiL 0.01% (Otic)] 5 drop BOTH EARS BID PRN PRN Reason: Itching Aspirin 81 mg PO DAILY 30 Days #30 cap Clopidogrel [Plavix] 75 mg PO DAILY 21 Days #21 tab amLODIPine [Norvasc] 10 mg PO QAM Ibuprofen [Advil] 200 - 400 mg PO Q6H PRN PRN Reason: Pain Cyanocobalamin (Vitamin B-12) [Vitamin B-12] 1 tab PO DAILY Cranberry Fruit Extract [Cranberry] 1 cap PO DAILY Lansoprazole [Prevacid] 15 mg PO Q48H Discharge Medication List Simvastatin 80 mg PO HS 07/19/17 [History] fluocinolone acetonide oiL [fluocinolone acetonide oiL 0.01% (Otic)] 5 drop BOTH EARS BID PRN 07/19/17 [History] Aspirin 81 mg PO DAILY 30 Days #30 cap 07/01/21 [Rx] Clopidogrel [Plavix] 75 mg PO DAILY 21 Days #21 tab 07/01/21 [Rx] amLODIPine [Norvasc] 10 mg PO QAM 02/03/22 [History] Lansoprazole [Prevacid] 15 mg PO Q48H 02/04/22 [History] Cranberry Fruit Extract [Cranberry] 1 cap PO DAILY 10/21/23 [History] Cyanocobalamin (Vitamin B-12) [Vitamin B-12] 1 tab PO DAILY 10/21/23 [History] Ibuprofen [Advil] 200 - 400 mg PO Q6H PRN 10/21/23 [History] Gabapentin [Neurontin] 200 mg PO BID 10 Days #40 cap 10/26/23 [Rx] Sennosides/Docusate Sodium [Senna-S 8.6-50 mg Tablet] 2 each PO DAILY PRN #30 tablet 10/26/23 [Rx] cefaDROXiL [Duricef] 500 mg PO Q12HR 5 Days #10 cap 10/26/23 [Rx] traMADol HCl [Ultram] 50 mg PO Q6H PRN #28 tab 10/26/23 [Rx] Follow up Appointment(s)/Referral(s): Narinder Mayer MD [Primary Care Provider] - 1 Week Santi Perez DO [Doctor of Osteopathic Medicine] - 11/09/23 11:00 am [facility] Visiting Nurse, [NON-STAFF] - 1-2 Days ([facility] will call you to schedule your in home nursing and physical therapy visits. ) Елена Vyas [NON-STAFF] - As Needed ([facility] will contact you within 5 business days to set up delivery of the LSO brace once it is approved from your insurance. ) Activity/Diet/Wound Care/Special Instructions: Spine Discharge and Recovery Instructions Date of Surgery: 10/24/23 Diagnosis: Lumbar spondylosis with stenosis Procedure: L4-L5 MIS TLIF Medications: See medication list All medication refills should be obtained through your primary care doctor or your clinic spine surgeon. Please discuss prescription refills at your follow up appointment. Do not call the hospital for medication refills. Activity: Encourage ambulation with assist of walker, Up and about 6-8x daily PT/OT daily work on balance, strength and mobility Up in chair with all meals Shower daily Brace: Use brace when up and about, do not wear in bed or shower Dressing: Leave your dressing in place for a total of 3 days post operatively. Then you may remove your dressing and leave open to air. Keep the area clean and if not able to keep area clean, then cover with sterile gauze and tape. Showering: You may shower 3 days after your procedure allowing soap and water to run over incision. Do not scrub. Do not soak. Blot dry. Follow up: Please confirm a follow up appointment with your surgeon 2 weeks post operatively. Please make an appointment to follow up with your PCP in 1-2 weeks after surgery for evaluation `3 phase, 3-week plan POST OP WEEKS 1-3 1. Lifting/carrying/pushing/pulling limited to less than 5 pounds. 2. Do not sit for longer than 15 minutes at one time. Get up and walk around. Prolonged sitting is NOT advised. If you lay down, see if you can tolerate laying down on you front (belly side) 3. Walk for periods of 15 minutes = 1 mile but no longer; do it multiple times times each day. 4. Ice your low back after activity. POST OP WEEKS 3-6 1. Lifting limited to less than 20 pounds. 2. Do not sit for longer than 30 minutes at a time. Frequently change positions. Use a sit-to stand workstation or take frequent breaks from sitting if you have returned to work. 3. Walk for 30 minutes each day. If possible, do these three or more times a day POST OP WEEKS 6+ At your 6-week appointment we will give you a physical therapy referral to focus on a core stabilization and strengthening program. You should also work on leg & buttock strengthening, hamstring & quadriceps stretching, and continue a low impact aerobic activity program such as swimming, walking, or riding a stationary bicycle. During the initial 6 weeks after your surgery, you are at the highest risk of re-injuring your spine. You should generally avoid BLTs (bending, lifting and twisting combination motions) and follow the above guidelines to reduce the chance of reinjury. You can anticipate post op appointments in our office at approximately 3 weeks and 6 weeks after your surgery. INCISION CARE: If your incision is not draining you do NOT need to cover it with a dressing. Keep your incision clean, dry and intact. In most cases, we apply skin glue, erum or sutures to the incision at the time of surgery. This will be like a crust or have the appearance of a scab and will fall off in time on its own. The stitches or erum need to be removed at 3 weeks post op appointment. You may begin to shower 3 days after surgery (this allows the glue to hahn well). However, please avoid scrubbing the incision site or peeling off any of the skin glue. This will ensure optimal healing of your incision. Also, during this time avoid soaking the incision area in water - this includes swimming pools, hot tubs or baths. No ointments, lotions or oils on the incision until your surgeon allows. Leave erum, sutures or glue in place. Neurological dysfunction that comes on suddenly can also be a sign of a stroke. Below some common symptoms of a stroke are listed: B - balance difficulty such as sudden onset walking or leaning to one side - NEW E - eye problem such as sudden double vision or trouble seeing on one side - NEW F - Facial weakness or numbness on one side - NEW A - Arm or leg weakness or numbness on one side - NEW S - Slurred speech or difficulty with word finding - NEW T - Time is BRAIN! Call 911 as soon as you recognize these symptoms Diet: Consume a regular diet rich in vegetables and lean protein such as chicken or fish. You should consume in a ratio of approximately 20% fats|40% carbohydrates|40%protein. Vegetables, sweet potatoes, brown rice or quinoa are examples of good carbohydrates. Chips, white bread, cookies and sweets/sugar are examples of bad carbohydrates. Limit your bad carbs, go wild with good carbs. "Life's Simple 7" Guidelines as per [place] [employer] These will help you reclaim your life after surgery and cork insulator helper in your recovery, keeping in mind your restrictions. (1) Get Active. Physical activity can help people lose weight, control high blood pressure and cholesterol, feel emotionally better, and sleep better. (2) Control Cholesterol. Avoid a diet high in saturated fat, trans fat, & cholesterol. Limit whole milk & cream, ice cream, butter, egg yolks, processed meats (like sausage and hot dogs), and fatty meats. Choose healthy foods that are low in saturated fat, trans fat and cholesterol which include: Fruits and vegetables, fiber rich grain products (like whole grain pasta and brown rice), lean meat such as chicken, fish, nuts, seeds, and legumes. (3) Eat Better. Eat small portions. Shop at the grocery with a list and do not stray from it. Tips for a healthy diet include: Limit sodium intake to less than 1500mg daily, avoid prepackaged, processed, and fast foods, choose a diet rich in fruits, vegetables, and whole grain, high fiber foods, and limit saturated & cholesterol in your diet. (4) Manage Blood Pressure. If you have high blood pressure, you should have a cuff at home so that you can check your blood pressure regularly. Be sure you have a good cuff. An arm one is generally better than a wrist one. Bring the cuff to a doctor's appointment to validate that the measurements that your cuff are taking are accurate. Take your blood pressure twice daily when you are sitting down and relaxing. Record the numbers in a log and bring this log with you to your doctors' appointments. (5) Lose Weight if your BMI is above 25. A healthy BMI is between 19-25. To calculate Your BMI, you may use a Standard BMI Calculator on the NIH BMI website: <www.nhlbi.nih.gov/guidelines/obesity/BMI/bmicalc.htm>. Weigh oneself daily. If you are overweight, set a goal to lose weight. A pound a week loss if needed is a good target. (6) Reduce Blood Sugar. Limit foods and liquids with "added sugars." (Added sugars include sucrose, fructose, glucose, maltose, dextrose, high fructose corn syrup, corn syrup, concentrated fruit juice and honey). (7) Stop Smoking. If you smoke, quitting smoking is one of the best things that you can do for your health. Smoking increases your risk of heart attack, stroke, and peripheral vascular disease, which is a build-up of plaque in your arteries. Please discard all the cigarettes and lighters in your house. Have a plan for what you will do when you have the urge to smoke. Direct and second- hand smoke shortens your life as well as the lives of your family, friends and others around you. For your health and the health of those around you, please consider quitting! Proper Bending Body Mechanics: Maintain a wide stance with one foot slightly in front of the other. Keep your back straight. Bend utilizing the strength in your hips and knees. Do not bend at the waist. Maintain the lifted object at your waist-level close to your body. Avoid lifting weight that causes immediately pain or pain anywhere in the body afterwards. Smoking/Nicotine If there was ever one thing that you could do to increase your overall health, decrease your risk of cardiovascular problems by about 39% the second you make the choice, it is to STOP SMOKING. Your body's most instant gratification is the second you stop smoking. We have all heard the studies, read the articles but it is true, smoking is extremely bad for your overall health, and moreover it is detrimental to your bone health. Nicotine, IN ANY FORM, kills bone cells, prevents your body from healing fractures, and significantly prolongs healing after surgery. In spine surgery specifically, it increases your risk of not healing your bones to create a fusion and increases your risk of having a revision surgery due to this up to 60%. I know it is hard. I know it feels impossible. But there are ways. Take control of your life. We are here to help you through it. And when you are ready, ask us and we can direct you to help if you desire. Use the START Plan to Quit Smoking (please visit the Helpguide.org website listed below for more information): S = Set a quit date. Choose a date within the next 2 weeks, so you have enough time to prepare without losing your motivation to quit. If you mainly smoke at work, quit on the weekend, so you have a few days to adjust to the change. T = Tell family, friends, and co-workers that you plan to quit. Let your friends and family in on your plan to quit smoking and tell them you need their support and encouragement to stop. Look for a quit tad who wants to stop smoking as well. You can help each other get through the rough times. A = Anticipate and plan for the challenges you'll face while quitting. Most people who begin smoking again do so within the first 3 months. You can help yourself make it through by preparing ahead for common challenges, such as nicotine withdrawal and cigarette cravings. R = Remove cigarettes and other tobacco products from your home, car, and work. Throw away all your cigarettes (no emergency pack!), lighters, ashtrays, and matches. Wash your clothes and freshen up anything that smells like smoke. Shampoo your car, clean your drapes and carpet, and steam your furniture. T = Talk to your doctor about getting help to quit. Your doctor can prescribe medication to help with withdrawal and suggest other alternatives. If you can't see a doctor, you can get many products over the counter at your local pharmacy or grocery store, including the nicotine patch, nicotine lozenges, and nicotine gum. Resources for Quitting Smoking: <https://w .[place].gov/documents/[facility]/Quit_Tobacco_Resources_for_patients_313480_7.pdf> Supplementation: Take recommended dosages of Vitamin D and Calcium to help fortify your bones and help them to heal. See your health maintenance packet for dosages and recommended levels. DVT/VTE prophylaxis: You will be given compression stockings from the hospital. Wear these daily for the first two weeks after surgery. You may take them off at night. You may be prescribed a medication to help thin your blood. Take this as directed. If you are not prescribed this medication, early and frequent ambulation has been shown to be the best prophylaxis to deep vein thrombosis and sequelae related to this event. Discharge Disposition: HOME WITH HOME HEALTH SERVICES
[2023-10-26 13:23] VITALS: BP 121/68; PULSE 111; RESP 16; TEMP 98
[2023-10-26 14:08] LABS: Appearance,Urine Clear (Clear); Bilirubin,Urine Negative (Negative); Blood,Urine Negative (Negative); Color,Urine Light Yellow; Glucose,Urine (UA) Negative (Negative); Ketones,Urine Negative (Negative); Leukocyte Esterase,Urine Negative (Negative); Nitrite,Urine Negative (Negative); PH, Urine 5.5 (5.0-8.0); Protein,Urine Trace (Negative); Specific Gravity,Urine 1.017 (1.001-1.035); Urobilinogen,Urine <2.0 mg/dL (<2.0)
== END 2023-10-26 15:15 | disposition home health service (06) ==
LOC: OR 10:52 → 4SSUR 14:33 → OR 10-26 15:15
PROVIDERS: ATTEND Orthopaedic Surgery
DX: M48.062 Spinal stenosis, lumbar region with neurogenic claudication (principal); M43.16 Spondylolisthesis, lumbar region; K21.9 Gastro-esophageal reflux disease without esophagitis; I10 Essential (primary) hypertension; G89.29 Other chronic pain; M47.816 Spondylosis without myelopathy or radiculopathy, lumbar region; M81.0 Age-related osteoporosis without current pathological fracture; M51.36 Other intervertebral disc degeneration, lumbar region; F17.210 Nicotine dependence, cigarettes, uncomplicated; Z68.25 Body mass index [BMI] 25.0-25.9, adult; Z79.02 Long term (current) use of antithrombotics/antiplatelets; Z79.82 Long term (current) use of aspirin; Z85.828 Personal history of other malignant neoplasm of skin; Z90.49 Acquired absence of other specified parts of digestive tract
CPT/HCPCS: 97161; 80053; 85025 ×2; 81003; 72100; 72131; 22633; 22853; 20936; 63052; C1713 ×2; J0690 ×2; J2405 ×2; J1170; J0665

== ENCOUNTER → 2024-07-12 | Outpatient (CLI) | payer MEDICARE, BC ==
--- NOTE | 2024-07-12 11:01 | MM ---
Reason for Exam: Screening (asymptomatic). Last screening mammogram was performed 12 month(s) ago. Patient History: Menarche at age 18. First Full-Term at age 25. Postmenopausal. Patient has history of breast feeding. Estrogen for 7 years, 7 months, until age 64. Progesterone for 7 years, 7 months, until age 64. Risk Values: Migdalia 5 year model risk: 1.3%. NCI Lifetime model risk: 1.7%. Prior Study Comparison: 09/27/2018 Bilateral Screening Mammogram, [facility]. 05/12/2022 Bilateral MG 3D screening mammo w/cad, [facility]. 06/28/2023 Bilateral MG 3D screening mammo w/cad, [facility]. Tissue Density: The breasts are heterogeneously dense, which may obscure small masses. Findings: Analyzed By CAD. There is no suspicious group of microcalcifications or new suspicious mass in either breast. Overall Assessment: Negative, BI-RAD 1 Management: Screening Mammogram of both breasts in 1 year. . Patient should continue monthly self-breast exams. A clinical breast exam by your physician is recommended on an annual basis. This exam should not preclude additional follow-up of suspicious palpable abnormalities. Note on Migdalia scores and lifetime risk: 1. A Migdalia score greater than 3% is considered moderate risk. If this is the case, consider specialist referral to assess eligibility for a risk reducing agent. 2. If overall lifetime risk for the development of breast cancer is 20% or higher, the patient may qualify for future screening with alternating mammogram and breast MRI. [facility], , 07/12/2024 10:59 AM. Electronically signed and approved by: Roland Bright M.D. Radiologis
--- NOTE | 2024-07-12 12:25 | BD ---
EXAMINATION TYPE: Axial Bone Density DATE OF EXAM: 07/12/2024 CLINICAL HISTORY: 84 years old Female. ICD-10 CODE: M810 KNOW OSTEO , Additional History: Height: 62 Weight: 130.9 FRAX RISK QUESTIONS: Alcohol (3 or more units per day): no Family History (Parent hip fracture): yes Glucocorticoids (More than 3mos): no (Ex: prednisone, prednisolone, methylprednisolone, dexamethasone, and hydrocortisone). History of Fracture in Adulthood: yes Secondary Osteoporosis: 1. Type 1 Diabetes: no 2. Hyperthyroidism: no 3. Menopause before 45: no 4. Malnutrition: no 5. Chronic liver disease: no Rheumatoid Arthritis: no Current Tobacco Use: no RISK FACTORS HISTORY OF: History of Wrist Fracture: left When: 20 years ago Surgery to Spine/Hip(right/left)/Wrist (right/left): lumbar spine When: 2024 EXAM MEASUREMENTS: Bone mineral densitometry was performed using the [employer]. Bone mineral density about the R hip (g/cm2): 0.735 Bone mineral density about the L hip (g/cm2): 0.758 T Score values are as follows: -----R Neck: -2.3 -----L Neck: -2.1 -----R Total: -2.2 -----L Total: -2.0 Z Score values are as follows: -----R Neck: 0.1 -----L Neck: 0.2 -----R Total: 0.1 -----L Total: 0.3 Bone mineral density has: decreased -11.6 % since study of: 09.27.2018 Bone mineral density about the R Wrist (g/cm2): 0.433 T Score values are as follows: -----Dist. R+U: -4.4 -----Prox. R+U: -2.7 -----Radius total: -4.0 Z Score values are as follows: -----Dist. R+U: -1.5 -----Prox. R+U: 0.2 -----Radius total: -1.1 Bone mineral density : baseline FRAX%s: The graph provided illustrates a 43.0% chance for a major osteoporotic fx and a 29.8% chance for the hips probability for fx in 10 years time. IMPRESSION: Osteoporosis (T Score less than -2.5). There is increased fracture risk and therapy is usually indicated based on age. Re-Screen 1-2 years. NOTE: T-SCORE=SD OF THE YOUNG ADULT MEAN. [facility], , 07/12/2024 12:23 PM
== END | disposition home or self-care (01) ==
LOC: RADMAMWWP 09:40
PROVIDERS: ATTEND Internal Medicine
DX: Z12.31 Encounter for screening mammogram for malignant neoplasm of breast (principal); R92.333 Mammographic heterogeneous density, bilateral breasts; M81.0 Age-related osteoporosis without current pathological fracture; M85.89 Other specified disorders of bone density and structure, multiple sites; Z78.0 Asymptomatic menopausal state
CPT/HCPCS: 77063; 77067; 77080

== ENCOUNTER 2024-10-03 08:28 | Day surgery (SDC) | payer MEDICARE, BC ==
[2024-10-03 09:00] VITALS: TEMP 97.5
--- NOTE | 2024-10-03 09:02 | P.GSHP ---
History of Present Illness H&P Date: 10/03/24 CHIEF COMPLAINT: Dysphagia and colon screen HISTORY OF PRESENT ILLNESS: The patient is a 84-year-old female who presents with dysphagia, gastroesophageal reflux disease and need for colon screen. Upper and lower endoscopy were offered for further evaluation and management. PAST MEDICAL HISTORY: Please see list. PAST SURGICAL HISTORY: Please see list. MEDICATIONS: Please see list. ALLERGIES: Please see list. SOCIAL HISTORY: No illicit drug use FAMILY HISTORY: No reports of Crohn disease or ulcerative colitis. REVIEW OF ORGAN SYSTEMS: CONSTITUTIONAL: No reports of fevers or chills. GI: Denies any blood in stools or constipation. PHYSICAL EXAM: VITAL SIGNS: Stable GENERAL: Well-developed pleasant in no acute distress. HEENT: No scleral icterus. Extraocular movements grossly intact. Moist buccal mucosa. NECK: Supple without lymphadenopathy. CHEST: Unlabored respirations. Equal bilateral excursions. CARDIOVASCULAR: Regular rate and rhythm. Distal 2+ pulses. ABDOMEN: Soft, nondistended. MUSCULOSKELETAL: No clubbing, cyanosis, or edema. ASSESSMENT: 1. Dysphagia and gastroesophageal reflux disease 2. Colon screen. PLAN: 1. Recommend proceeding with an upper and lower endoscopy Past Medical History Past Medical History: Cancer, CVA/TIA, GERD/Reflux, Hyperlipidemia, Hypertension Additional Past Medical History / Comment(s): osteoporosis. TIA, SKIN CANCER, freq bladder infections History of Any Multi-Drug Resistant Organisms: None Reported Past Surgical History: Appendectomy, Back Surgery, Ear Surgery Additional Past Surgical History / Comment(s): Colonoscopy . Laparoscopy and D&Cs in the past.parathyroid,2 rods and 4 screws in lower back Past Anesthesia/Blood Transfusion Reactions: No Reported Reaction, Motion Sickness Smoking Status: Never smoker - Past Family History Father Family Medical History: Cancer Additional Family Medical History / Comment(s): Prostate cancer. Mother Family Medical History: Hyperlipidemia Medications and Allergies Home Medications Medication Instructions Recorded Confirmed Type Simvastatin 80 mg PO HS 07/19/17 10/03/24 History Aspirin 81 mg PO DAILY 30 Days #30 cap 07/01/21 10/03/24 Rx Clopidogrel [Plavix] 75 mg PO DAILY 21 Days #21 tab 07/01/21 10/03/24 Rx amLODIPine [Norvasc] 10 mg PO QAM 02/03/22 10/03/24 History Lansoprazole [Prevacid] 15 mg PO Q48H 02/04/22 10/03/24 History Cranberry Fruit Extract [Cranberry] 1 cap PO DAILY 10/21/23 10/03/24 History Cyanocobalamin (Vitamin B-12) 1 tab PO DAILY 10/21/23 10/03/24 History [Vitamin B-12] Vit D (Unk) 1 tab PO DAILY 10/01/24 10/03/24 History Allergies Allergy/AdvReac Type Severity Reaction Status Date / Time No Known Allergies Allergy Verified 10/03/24 08:54 Surgical - Exam Vital Signs Temp Pulse Resp BP Pulse Ox 97.5 F L 76 16 144/76 97 10/03/24 08:59 10/03/24 08:59 10/03/24 08:59 10/03/24 08:59 10/03/24 08:59
[2024-10-03] MEDS: IV FLUID CONTINUATION 1,000 ML IV ONE (09:05)
[2024-10-03] MEDS: LACTATED RINGERS 1,000 ML IV SCH (09:05)
[2024-10-03] MEDS ORDERED: LIDOCAINE 1% INJ 10MG/ML (20 ML MDV) ONE (09:36)
[2024-10-03] MEDS ORDERED: PROPOFOL 10 MG/ML 20 ML VIAL IV ONE (09:36)
--- NOTE | 2024-10-03 10:05 | P.PCN ---
Date of Procedure: 10/03/24 Description of Procedure: PREOPERATIVE DIAGNOSIS: Personal history of colon polyps Colonoscopy screening POSTOPERATIVE DIAGNOSIS: Tubular adenoma transverse colon Sigmoid diverticulosis Internal hemorrhoids, grade 4 OPERATION: Colonoscopy to the ileocecal valve and appendiceal orifice, cecum Colonoscopy with hot snare polypectomy SURGEON: Kayla Gao MD. ANESTHESIA: MAC. INDICATIONS: The patient is an 84-year-old female who presents personal history of colon polyps. Last colonoscopy 5 years. Benefits and risks were described and informed consent was obtained. DESCRIPTION OF PROCEDURE: The patient had undergone GoLytely prep. The patient had been brought into the operating room and laid in the left lateral decubitus position. After adequate intravenous sedation, the rectum was examined with 2% lidocaine jelly. External hemorrhoids were encountered. The rectal tone was within normal limits. No lesions were palpated in the rectal vault. An Olympus colonoscope was advanced until the cecum, ileocecal valve and appendiceal orifice were clearly viewed. The prep was fair. Sigmoid diverticulosis was encountered. Colonic polyps were found and removed. No evidence of focal colitis was found. Retroflexion of the scope demonstrated grade 4 internal hemorrhoids without active bleeding or inflammation. The colon was desufflated. The patient had tolerated the procedure well. Withdrawal time was over 6 minutes. FINDINGS: Aronchick preparation quality scale 2 (1-5) Internal hemorrhoids, grade 4 External hemorrhoids, grade 4. No arteriovenous malformations. Sigmoid diverticulosis Removal of 3 polyps: - Snare polypectomy mid transverse colon x 3, 4 to 5 mm tubulovillous adenomas No focal colitis. RECOMMENDATIONS: Repeat colonoscopy 3 years, 2027 Plan - Discharge Summary Discharge Rx Participant: No New Discharge Prescriptions: Continue Simvastatin 80 mg PO HS Aspirin 81 mg PO DAILY 30 Days #30 cap Clopidogrel [Plavix] 75 mg PO DAILY 21 Days #21 tab amLODIPine [Norvasc] 10 mg PO QAM Cyanocobalamin (Vitamin B-12) [Vitamin B-12] 1 tab PO DAILY Cranberry Fruit Extract [Cranberry] 1 cap PO DAILY Vit D (Unk) 1 tab PO DAILY Lansoprazole [Prevacid] 15 mg PO Q48H Discharge Medication List Simvastatin 80 mg PO HS 07/19/17 [History] Aspirin 81 mg PO DAILY 30 Days #30 cap 07/01/21 [Rx] Clopidogrel [Plavix] 75 mg PO DAILY 21 Days #21 tab 07/01/21 [Rx] amLODIPine [Norvasc] 10 mg PO QAM 02/03/22 [History] Lansoprazole [Prevacid] 15 mg PO Q48H 02/04/22 [History] Cranberry Fruit Extract [Cranberry] 1 cap PO DAILY 10/21/23 [History] Cyanocobalamin (Vitamin B-12) [Vitamin B-12] 1 tab PO DAILY 10/21/23 [History] Vit D (Unk) 1 tab PO DAILY 10/01/24 [History] Follow up Appointment(s)/Referral(s): Kayla Gao MD [STAFF PHYSICIAN] - 10/30/24 11:00 am Patient Instructions/Handouts: Diverticulosis (DC), Colorectal Polyps (GEN), Hiatal Hernia (DC) Activity/Diet/Wound Care/Special Instructions: Repeat colonoscopy 3 years, 2027 Discharge Disposition: HOME SELF-CARE
--- NOTE | 2024-10-03 10:06 | P.PCN ---
Date of Procedure: 10/03/24 Description of Procedure: PREOPERATIVE DIAGNOSIS: Dysphagia POSTOPERATIVE DIAGNOSIS: Gastroesophageal reflux disease. Gastritis. Diaphragmatic hiatal hernia OPERATION: Esophagogastroduodenoscopy with cold forceps biopsies along esophagus, antrum and duodenum SURGEON: Kayla Gao MD ANESTHESIA: MAC. INDICATIONS: The patient is a 84-year-old female who presents with dysphagia and reflux disease. Benefits and risks of the procedure were described. Informed consent was obtained. DESCRIPTION: The patient was brought into the endoscopy suite and laid in the left lateral decubitus position. Patient had moderate coughing prohibiting dilation. An Olympus gastroscope was passed along the posterior oropharynx down to the distal esophagus where the squamocolumnar junction was encountered at 35 cm from the incisors. The stomach was entered and no bile reflux was found. Additional findings are listed below. Biopsies with cold forceps were obtained of the antrum. The first through third portion of the duodenum was examined. Retroflexion of the scope confirmed Hill grade 3 lower esophageal valve. The squamocolumnar junction demonstrated LA grade B erosive esophagitis. The stomach was desufflated. The patient tolerated the procedure well. FINDINGS: Squamocolumnar junction 35 cm from the incisors. Diaphragmatic hiatus at 37 cm. Hiatal hernia, 2 cm Hill grade 3 lower esophageal valve. LA grade B erosive esophagitis. Biopsies obtained Biopsies obtained of the duodenum. Chronic gastritis with biopsies obtained. RECOMMENDATIONS: Upper endoscopy as needed for dilation in the future
[2024-10-03 10:28] VITALS: BP 107/59; PULSE 73; RESP 16
== END 2024-10-03 11:20 | disposition home or self-care (01) ==
LOC: ORWHC2ENDO 08:28
PROVIDERS: ATTEND Surgery Plastic and Reconstructive Surgery
DX: Z12.11 Encounter for screening for malignant neoplasm of colon (principal); D12.3 Benign neoplasm of transverse colon; K57.30 Diverticulosis of large intestine without perforation or abscess without bleeding; K64.3 Fourth degree hemorrhoids; K64.4 Residual hemorrhoidal skin tags; K29.50 Unspecified chronic gastritis without bleeding; K21.00 Gastro-esophageal reflux disease with esophagitis, without bleeding; K44.9 Diaphragmatic hernia without obstruction or gangrene; I10 Essential (primary) hypertension; E78.5 Hyperlipidemia, unspecified; M81.0 Age-related osteoporosis without current pathological fracture; Z79.02 Long term (current) use of antithrombotics/antiplatelets; Z79.82 Long term (current) use of aspirin; Z79.899 Other long term (current) drug therapy; Z86.73 Personal history of transient ischemic attack (TIA), and cerebral infarction without residual deficits
CPT/HCPCS: 45385; 43239; J2003; J2704; 88305